=== PATIENT | female | born 1965 | race Caucasian/White ===

== ENCOUNTER 2017-04-26 15:17 | Emergency (ER) | payer BC, OTHER ==
[~2017-04-26] VITALS: Ht 154.9 cm; Wt 50.0 kg
[2017-04-26 17:59] VITALS: BP 129/57
--- NOTE | 2017-04-26 18:00 | ED PDOC ---
Post-Departure Follow-Up CT READ "NAD". DISCUSSED THIS WITH PT AND THE FACT THAT SHE'S STILL SYMPTOMATIC, WE COULD ORDER AN MRI AT THIS TIME. PT HAS ONE PENDING AN OUTPT TO BE CLEARED THROUGH HER INSURANCE, ORDERED BY DR. MCKEON. EXPLAINED THAT THIS COULD TAKE HOURS AND AT THIS TIME, PT STATED SHE WANTED TO GO HOME AND WOULD FOLLOW UP WITH THE OUTPATIENT APPT. ADVISED STILL COULD BE SOMETHING SERIOUS AND PT STILL WANTS TO GO HOME AT THIS TIME. SLOANE KRAFT PA-C Apr 26, 2017 18:00
--- NOTE | 2017-04-26 18:03 | REP ---
CT study of the brain without contrast: History: Left-sided facial numbness. Comparison CT study February 01, 2016. CT findings: Bone window settings demonstrate an intact bony calvarium. There is no evidence of paranasal sinus disease. No intraorbital abnormality is seen. Sandoval white differentiation pattern is normal above below the tentorium. There is no evidence of intracranial hemorrhage. No mass, infarct, extra-axial fluid collection or midline shift is seen. Impression: Negative CT study of the brain. Signed by Obdulio Mclaughlin MD 04/26/2017 07:18 P
== END 2017-04-26 18:01 | disposition home or self-care (01) ==
LOC: M ED 15:17
DX: R20.0 Anesthesia of skin (principal); Z87.820 Personal history of traumatic brain injury; F17.210 Nicotine dependence, cigarettes, uncomplicated

== ENCOUNTER 2017-08-14 12:22 | Emergency (ER) | payer OTHER, BC | END 2017-08-14 14:04 | disposition home or self-care (01) | LOC: M ED 12:22 | DX: S00.03XA Contusion of scalp, initial encounter (principal); W22.8XXA Striking against or struck by other objects, initial encounter; Y92.59 Other trade areas as the place of occurrence of the external cause; Y99.0 Civilian activity done for income or pay | CPT/HCPCS: 99283 ==

== ENCOUNTER 2017-08-26 16:17 | Emergency (ER) | payer SELFPAY, OTHER | END 2017-08-26 18:26 | disposition home or self-care (01) | LOC: M ED 16:17 | DX: R51 Headache (principal); H69.90 Unspecified Eustachian tube disorder, unspecified ear; M50.30 Other cervical disc degeneration, unspecified cervical region; R20.0 Anesthesia of skin; F17.200 Nicotine dependence, unspecified, uncomplicated; Z79.899 Other long term (current) drug therapy; Z79.82 Long term (current) use of aspirin | CPT/HCPCS: 72052 ==

== ENCOUNTER → 2018-02-27 | Outpatient (REF) | payer BC ==
[2018-03-01 14:32] LABS: HPV HYBRID CAPTURE II Negative (Negative)
== END ==
LOC: M LAB REF 17:55
DX: Z12.4 Encounter for screening for malignant neoplasm of cervix (principal)
CPT/HCPCS: G0123

== ENCOUNTER 2019-01-23 14:23 | Emergency (ER) | payer BC, OTHER ==
[~2019-01-23] VITALS: Ht 152.4 cm; Wt 50.9 kg
[~2019-01-23 14:23] MED LIST: ASPI81TA85 PO; CEFD1CAP8 PO; CYCL10TA PO; NORT25CA2 PO; OMEP40CA2 PO; TYLE325T5 PO
[2019-01-23 15:24] LABS: BASO % 0.3 % (0.0-1.0); EOS # 0.2 10^3/uL (0.0-0.50); EOS % 2.1 % (0.0-3.0); HEMATOCRIT 38.1 % (36.0-47.0); HEMOGLOBIN 12.8 g/dl (12.0-15.5); LYMPH # 2.2 10^3/uL (1.5-4.5); LYMPH % 22.5 % (24.0-44.0); MEAN CORPUSCULAR HEMOGLOBIN 33.1 pg (27.0-33.0); MEAN CORPUSCULAR HGB CONC 33.6 g/dl (32.0-36.5); MEAN CORPUSCULAR VOLUME 98.4 fl (80.0-96.0); MONO # 0.6 10^3/uL (0.0-0.8); MONO % 6.4 % (0.0-5.0); NEUTROPHILS # 6.7 10^3/uL (1.8-7.7); NEUTROPHILS % 68.4 % (36.0-66.0); PLATELET COUNT, AUTOMATED 384 10^3/uL (150-450); RED BLOOD COUNT 3.87 10^6/uL (4.00-5.40); WHITE BLOOD COUNT 9.7 10^3/uL (4.0-10.0)
[2019-01-23 15:31] LABS: BLOOD UREA NITROGEN 12 MG/DL (7-18); CALCIUM LEVEL 9.8 MG/DL (8.5-10.1); CARBON DIOXIDE LEVEL 29 MEQ/L (21-32); CHLORIDE LEVEL 108 MEQ/L (98-107); CREATININE FOR GFR 0.82 MG/DL (0.55-1.30); GLOMERULAR FILTRATION RATE > 60.0 (>51); GLUCOSE, FASTING 89 MG/DL (70-100); POTASSIUM SERUM 4.5 MEQ/L (3.5-5.1); SODIUM LEVEL 142 MEQ/L (136-145)
[2019-01-23 17:30] LABS: APPEARANCE, URINE CLEAR (CLEAR); BACTERIA, URINE AUTO NEGATIVE (NEGATIVE); BILIRUBIN, URINE AUTO NEGATIVE (NEGATIVE); BLOOD, URINE BLOOD 1+ (NEGATIVE); COLOR, URINE STRAW (YELLOW); GLUCOSE, URINE (UA) AUTO NEGATIVE (NEGATIVE); KETONE, URINE AUTO TRACE mg/dL (NEGATIVE); LEUKOCYTE ESTERASE, URINE AUTO NEGATIVE (NEGATIVE); NITRITE, URINE AUTO NEGATIVE (NEGATIVE); PROTEIN, URINE AUTO NEGATIVE (NEGATIVE); RBC, URINE AUTO 2 /HPF (0-3); SPECIFIC GRAVITY URINE AUTO 1.006 (1.002-1.035); SQUAMOUS EPITHELIAL CELL UR AU 0 /HPF (0-6); UROBILINOGEN, URINE AUTO 0.2 mg/dL (0.0-2.0); WBC, URINE AUTO 0 /HPF (0-3)
[2019-01-23 17:55] VITALS: BP 129/75
== END 2019-01-23 18:23 | disposition home or self-care (01) ==
LOC: M ED 14:23
DX: K64.5 Perianal venous thrombosis (principal); K21.9 Gastro-esophageal reflux disease without esophagitis; Z97.5 Presence of (intrauterine) contraceptive device; Z79.899 Other long term (current) drug therapy; F17.210 Nicotine dependence, cigarettes, uncomplicated

== ENCOUNTER → 2019-02-05 | Outpatient (REF) | payer OTHER ==
[~2019-02-05] MED LIST changes: +MACR100C43 PO; -OMEP40CA2 PO; +OMEP40CA97 PO
[2019-02-05 22:19] LABS: CHLAMYDIA DNA AMPLIFICATION NEGATIVE (NEGATIVE); GC DNA AMPLIFICATION NEGATIVE (NEGATIVE)
== END ==
LOC: M LAB REF 17:09
PROVIDERS: ATTEND Advanced Practice Midwife
DX: Z11.3 Encounter for screening for infections with a predominantly sexual mode of transmission (principal); R30.0 Dysuria

== ENCOUNTER 2019-02-06 06:51 | Emergency (ER) | payer OTHER ==
[~2019-02-06] VITALS: Ht 152.4 cm; Wt 50.9 kg
[~2019-02-06 06:51] MED LIST changes: -MACR100C43 PO
[2019-02-06 09:43] LABS: BASO % 0.4 % (0.0-1.0); EOS # 0.2 10^3/uL (0.0-0.50); EOS % 1.9 % (0.0-3.0); HEMATOCRIT 42.8 % (36.0-47.0); HEMOGLOBIN 14.7 g/dl (12.0-15.5); LYMPH % 18.6 % (24.0-44.0); MEAN CORPUSCULAR HEMOGLOBIN 34.6 pg (27.0-33.0); MEAN CORPUSCULAR HGB CONC 34.3 g/dl (32.0-36.5); MEAN CORPUSCULAR VOLUME 100.7 fl (80.0-96.0); MONO # 0.7 10^3/uL (0.0-0.8); MONO % 6.7 % (0.0-5.0); NEUTROPHILS # 7.8 10^3/uL (1.8-7.7); NEUTROPHILS % 72.1 % (36.0-66.0); PLATELET COUNT, AUTOMATED 372 10^3/uL (150-450); RED BLOOD COUNT 4.25 10^6/uL (4.00-5.40); WHITE BLOOD COUNT 10.8 10^3/uL (4.0-10.0)
[2019-02-06 10:12] LABS: BLOOD UREA NITROGEN 10 MG/DL (7-18); CALCIUM LEVEL 9.7 MG/DL (8.5-10.1); CARBON DIOXIDE LEVEL 30 MEQ/L (21-32); CHLORIDE LEVEL 107 MEQ/L (98-107); CREATININE FOR GFR 0.89 MG/DL (0.55-1.30); GLOMERULAR FILTRATION RATE > 60.0 (>51); GLUCOSE, FASTING 97 MG/DL (70-100); POTASSIUM SERUM 4.3 MEQ/L (3.5-5.1); SODIUM LEVEL 142 MEQ/L (136-145)
[2019-02-06] MEDS ORDERED: MACR100C43 PO (10:49)
[2019-02-06 10:52] LABS: FOLLICLE STIMULATING HORMONE 77.9 mIU/mL; LUTEINIZING HORMONE 28.5 mIU/mL
[2019-02-06 10:58] VITALS: BP 125/71
--- NOTE | 2019-02-06 12:06 | REP ---
PELVIC ULTRASOUND: Real-time sonographic evaluation of the pelvis performed. Transabdominal and endovaginal technique is utilized. Bladder measures 5.0 x 2.1 x 4.9 cm. Uterus measures 7.4 x 3.2 x 4.0 cm. Endometrial thickness is 6 mm. IUD is seen in the endometrial cavity. There is no endometrial fluid collection. Right ovary measures 2.0 x 0.9 x 1.8 cm and left ovary 1.8 x 0.8 x 1.2 cm. A dominant follicle in the left ovary measures 1 cm in diameter. There is no torsion of either ovary, RI right ovary 0.64 and left ovary 0.52. There appear to be multiple uterine fibroids, on the right 1.5 cm in diameter, on the left 1.9 cm in diameter, and in the midline 1.1 cm in diameter. No adnexal mass or free fluid is seen. IMPRESSION: IUD in the endometrial canal. Fibroid uterus. No torsion. No ovarian cyst. Electronically Signed by Mike Sandoval MD 02/09/2019 11:15 A
== END 2019-02-06 11:03 | disposition home or self-care (01) ==
LOC: M ED 06:51
DX: N83.202 Unspecified ovarian cyst, left side (principal); N39.0 Urinary tract infection, site not specified; D25.9 Leiomyoma of uterus, unspecified; K21.9 Gastro-esophageal reflux disease without esophagitis; Z79.899 Other long term (current) drug therapy; Z97.5 Presence of (intrauterine) contraceptive device; F17.210 Nicotine dependence, cigarettes, uncomplicated

== ENCOUNTER → 2019-08-13 | Outpatient (REF) | payer BC ==
[~2019-08-13] MED LIST changes: +MACR100C43 PO
[2019-08-13 12:03] LABS: BASO % 0.5 % (0.0-1.0); EOS # 0.3 10^3/uL (0.0-0.5); EOS % 4.8 % (0.0-3.0); HEMATOCRIT 42.3 % (36.0-47.0); HEMOGLOBIN 13.8 g/dl (12.0-15.5); LYMPH # 1.9 10^3/uL (1.5-5.0); LYMPH % 30.7 % (24.0-44.0); MEAN CORPUSCULAR HEMOGLOBIN 32.5 pg (27.0-33.0); MEAN CORPUSCULAR HGB CONC 32.6 g/dl (32.0-36.5); MEAN CORPUSCULAR VOLUME 99.5 fl (80.0-96.0); MONO # 0.6 10^3/uL (0.0-0.8); MONO % 9.1 % (0.0-5.0); NEUTROPHILS # 3.4 10^3/uL (1.5-8.5); NEUTROPHILS % 54.7 % (36.0-66.0); PLATELET COUNT, AUTOMATED 362 10^3/uL (150-450); RED BLOOD COUNT 4.25 10^6/uL (4.00-5.40); WHITE BLOOD COUNT 6.2 10^3/uL (4.0-10.0)
[2019-08-13 12:24] LABS: ALBUMIN 3.9 GM/DL (3.2-5.2); ALT/SGPT 26 U/L (12-78); BILIRUBIN,TOTAL 0.4 MG/DL (0.2-1.0); BLOOD UREA NITROGEN 18 MG/DL (7-18); CALCIUM LEVEL 9.4 MG/DL (8.5-10.1); CARBON DIOXIDE LEVEL 29 MEQ/L (21-32); CHLORIDE LEVEL 107 MEQ/L (98-107); CHOLESTEROL LEVEL 191 MG/DL (<200); CREATININE FOR GFR 0.94 MG/DL (0.55-1.30); GLOMERULAR FILTRATION RATE > 60.0 (>51); GLUCOSE, FASTING 99 MG/DL (70-100); HDL CHOLESTEROL 86 MG/DL (>40); LDL CHOLESTEROL 93 MG/DL (<100); NON-HDL-C 105 MG/DL; POTASSIUM SERUM 4.9 MEQ/L (3.5-5.1); SODIUM LEVEL 144 MEQ/L (136-145); TRIGLYCERIDES LEVEL 59 MG/DL (<150)
== END ==
LOC: M LABDRAW1 08:16
PROVIDERS: ATTEND Nurse Practitioner Family
DX: Z00.00 Encounter for general adult medical examination without abnormal findings (principal)

== ENCOUNTER → 2019-09-04 | Outpatient (REF) | payer BC ==
[2019-09-04 14:32] LABS: HEPATITIS B SURFACE ANTIGEN NEGATIVE (NEGATIVE); HEPATITIS C VIRUS ABY INDEX < 0.0 INDEX (<0.8); HIV 1&2 SCREEN CENTAUR NEGATIVE (NEGATIVE)
[2019-09-04 15:25] LABS: CHLAMYDIA DNA AMPLIFICATION NEGATIVE (NEGATIVE); GC DNA AMPLIFICATION NEGATIVE (NEGATIVE)
== END ==
LOC: M PLALAB 10:54
PROVIDERS: ATTEND Advanced Practice Midwife
DX: Z11.3 Encounter for screening for infections with a predominantly sexual mode of transmission (principal)

== ENCOUNTER → 2019-12-28 | Outpatient (CLI) | payer BC ==
[~2019-12-28] MED LIST changes: +CYCL-707 PO; -CYCL10TA PO
--- NOTE | 2019-12-28 14:06 | REP ---
Clinical: Previous trauma with continued pain Technique: AP, lateral, bilateral oblique views right hand . Findings: The osseous structures and joint spaces are intact and normal. There is no evidence for acute fracture or dislocation. Surrounding soft tissues are unremarkable. No subcutaneous emphysema or radiodense foreign body. Impression: No acute fracture or dislocation. Electronically Signed by Lalito Ramos MD 12/28/2019 01:57 P
--- NOTE | 2019-12-28 14:06 | REP ---
Clinical: Previous trauma with continued pain Technique: AP, lateral, bilateral oblique views right wrist . Findings: The carpal bones, surrounding osseous structures, soft tissues, and joint spaces are normal. There is no evidence for acute fracture or dislocation. No subcutaneous emphysema or radiodense foreign body. Impression: Normal wrist series. No acute fracture or dislocation Electronically Signed by Lalito Ramos MD 12/28/2019 01:58 P
== END ==
LOC: M LRY 13:24
PROVIDERS: ATTEND Physician Assistant
DX: M25.531 Pain in right wrist (principal); M79.641 Pain in right hand

== ENCOUNTER → 2020-05-11 | Outpatient (CLI) | payer BC, OTHER ==
[~2020-05-11] MED LIST changes: -ASPI81TA85 PO; +ASPI81TA86 PO; +CLAR10CA3 PO; +MIRE1IUD IU; +PROT20TA11 PO; +WOMETAB PO
== END ==
LOC: M LABSMTC 10:36
PROVIDERS: ATTEND Anesthesiology
DX: Z01.812 Encounter for preprocedural laboratory examination (principal); Z20.828 Contact with and (suspected) exposure to other viral communicable diseases

== ENCOUNTER 2020-05-13 16:14 | Emergency (ER) | payer BC, OTHER ==
[~2020-05-13] VITALS: Ht 154.9 cm; Wt 60.9 kg
[2020-05-13] MEDS ORDERED: NS 1,000 ML IV SCH (17:14)
[2020-05-13] MEDS ORDERED: ONDANSETRON 4MG/2ML VIAL IV ONE (17:15)
[2020-05-13] MEDS ORDERED: GI COCKTAIL 50ML BTL(HYOSCYAMINE/MAALOX/LIDOCAINE VISCOUS)(1:3:1) PO ONE (17:15)
[2020-05-13 17:42] LABS: BASO % 0.3 % (0.0-1.0); EOS # 0.3 10^3/uL (0.0-0.5); EOS % 2.9 % (0.0-3.0); HEMATOCRIT 41.3 % (36.0-47.0); HEMOGLOBIN 13.7 g/dl (12.0-15.5); LYMPH # 2.9 10^3/uL (1.5-5.0); LYMPH % 31.4 % (24.0-44.0); MEAN CORPUSCULAR HEMOGLOBIN 32.5 pg (27.0-33.0); MEAN CORPUSCULAR HGB CONC 33.2 g/dl (32.0-36.5); MEAN CORPUSCULAR VOLUME 97.9 fl (80.0-96.0); MONO # 0.6 10^3/uL (0.0-0.8); MONO % 6.4 % (0.0-5.0); NEUTROPHILS # 5.5 10^3/uL (1.5-8.5); NEUTROPHILS % 58.6 % (36.0-66.0); PLATELET COUNT, AUTOMATED 386 10^3/uL (150-450); RED BLOOD COUNT 4.22 10^6/uL (4.00-5.40); WHITE BLOOD COUNT 9.3 10^3/uL (4.0-10.0)
--- NOTE | 2020-05-13 17:47 | REPVR ---
PROCEDURE INFORMATION: Exam: CT Abdomen And Pelvis Without Contrast Exam date and time: 05/13/2020 5:14 PM Age: 54 years old Clinical indication: Abdominal pain; Additional info: Abd pain TECHNIQUE: Imaging protocol: Computed tomography of the abdomen and pelvis without contrast. Radiation optimization: All CT scans at this facility use at least one of these dose optimization techniques: automated exposure control; mA and/or kV adjustment per patient size (includes targeted exams where dose is matched to clinical indication); or iterative reconstruction. COMPARISON: US PELVIC NON-OB COMPLETE 02/06/2019 9:48 AM FINDINGS: Lungs: Subsegmental atelectasis in the medial segment of the right middle lobe. Thin linear opacity within the lingula. Liver: Normal. No mass. Gallbladder and bile ducts: Normal. No calcified stones. No ductal dilation. Pancreas: Normal. No ductal dilation. Spleen: Normal. No splenomegaly. Adrenal glands: Normal. No mass. Kidneys and ureters: 7 mm low-density lesion lower pole left kidney (16 H) 1.6 mm calcification upper pole left kidney. 1.8 mm calcification upper pole left kidney. 1.7 mm calcification mid right kidney. No hydronephrosis in either kidney. Stomach and bowel: Mild wall thickening suggested of the 1st and 2nd portions of the duodenum. No perienteric inflammation noted. Appendix: No evidence of appendicitis. Intraperitoneal space: Unremarkable. No free air. No significant fluid collection. Vasculature: Unremarkable. No abdominal aortic aneurysm. Lymph nodes: Unremarkable. No enlarged lymph nodes. Urinary bladder: Unremarkable as visualized. Reproductive: Intrauterine device present within the uterus. Bones/joints: Unremarkable. No acute fracture. Soft tissues: Small umbilical hernia fat measuring less than a cm at its base no signs of strangulation. IMPRESSION: 1. Bilateral nonobstructing renal calculi 2. Mild wall thickening of the 1st and 2nd portions of the duodenum. This could be related to relative decompression. Duodenitis is another consideration 3. 7 mm low-density lesion left kidney not fully characterized on this unenhanced examination. There are no suspicious features. This is likely benign in a low risk individual. No follow-up recommended based on this finding. COMMENTS: Consistent with the [employer]'s Incidental Findings Committee white paper (J Am Prakash Radiol 2018): Any incidental renal lesion less than 1 cm or classified as too small to characterize, or any incidental cystic renal lesion characterized as simple-appearing, is likely benign. No follow-up imaging is recommended for these lesions per consensus recommendations based on imaging criteria. Electronically signed by: Evelina Davis On 05/13/2020 17:47:55 PM
[2020-05-13 18:05] LABS: ALT/SGPT 33 U/L (12-78); BILIRUBIN,DIRECT 0.1 MG/DL (0.0-0.2); BILIRUBIN,TOTAL 0.3 MG/DL (0.2-1.0); BLOOD UREA NITROGEN 14 MG/DL (7-18); CALCIUM LEVEL 9.3 MG/DL (8.5-10.1); CARBON DIOXIDE LEVEL 29 MEQ/L (21-32); CHLORIDE LEVEL 108 MEQ/L (98-107); CREATININE FOR GFR 0.84 MG/DL (0.55-1.30); GLOMERULAR FILTRATION RATE > 60.0 (>51); GLUCOSE, FASTING 83 MG/DL (70-100); LIPASE 171 U/L (73-393); POTASSIUM SERUM 4.4 MEQ/L (3.5-5.1); SODIUM LEVEL 141 MEQ/L (136-145); TOTAL PROTEIN 7.1 GM/DL (6.4-8.2)
[2020-05-13 18:44] VITALS: BP 123/70
--- NOTE | 2020-05-16 10:31 | ED PDOC ---
Post-Departure Follow-Up ct abd/p formal report faxed to dr evi nicholson for fu Radha Merritt MD May 16, 2020 10:31
== END 2020-05-13 18:51 | disposition home or self-care (01) ==
LOC: M ED 16:14
DX: K21.9 Gastro-esophageal reflux disease without esophagitis (principal); Z79.899 Other long term (current) drug therapy; Z97.5 Presence of (intrauterine) contraceptive device; F17.210 Nicotine dependence, cigarettes, uncomplicated
CPT/HCPCS: 36415; 74176; 80048; 80076; 81001; 83690; 85025; 96361; 96374; 99284; J2405

== ENCOUNTER 2020-05-16 11:35 | Day surgery (SDC) | payer OTHER ==
[~2020-05-16] VITALS: Ht 154.9 cm; Wt 59.9 kg
[~2020-05-16 11:35] MED LIST changes: +NS 1,000 ML IV ONE
[2020-05-16] MEDS ORDERED: LIDOCAINE 2% 100MG/5ML SDV (FOR ANES.) As Ordered ONE (12:56)
[2020-05-16] MEDS ORDERED: fentaNYL 100 MCG/2 ML INJECTION (J3010) As Ordered ONE (12:56)
[2020-05-16] MEDS ORDERED: propofoL 500 MG/50 ML VIAL As Ordered ONE (12:56)
--- NOTE | 2020-05-16 13:31 | ROOR ---
Patient Name: Telma Muñoz Procedure Date: 05/16/2020 12:48 PM Date of : 1965 Age: 55 Room: [facility] Gender: Female Note Status: Finalized Procedure: Upper GI endoscopy Indications: Epigastric abdominal pain, Heartburn Providers: Anand Valentin MD Referring MD: Josefina Fay MD Requesting Provider: Medicines: Monitored Anesthesia Care Complications: No immediate complications. Procedure: Pre-Anesthesia Assessment: - Prior to the procedure, a History and Physical was performed, and patient medications and allergies were reviewed. The patient is competent. The risks and benefits of the procedure and the sedation options and risks were discussed with the patient. All questions were answered and informed consent was obtained. Patient identification and proposed procedure were verified by the physician, the nurse and the anesthesiologist in the procedure room. Mental Status Examination: alert and oriented. Airway Examination: normal oropharyngeal airway and neck mobility. Respiratory Examination: clear to auscultation. CV Examination: normal. Prophylactic Antibiotics: The patient does not require prophylactic antibiotics. Prior Anticoagulants: The patient has taken no previous anticoagulant or antiplatelet agents. ASA Grade Assessment: II - A patient with mild systemic disease. After reviewing the risks and benefits, the patient was deemed in satisfactory condition to undergo the procedure. The anesthesia plan was to use monitored anesthesia care (MAC). Immediately prior to administration of medications, the patient was re-assessed for adequacy to receive sedatives. The heart rate, respiratory rate, oxygen saturations, blood pressure, adequacy of pulmonary ventilation, and response to care were monitored throughout the procedure. The physical status of the patient was re-assessed after the procedure. The Endoscope was introduced through the mouth, and advanced to the second part of duodenum. The upper GI endoscopy was accomplished without difficulty. The patient tolerated the procedure well. Findings: The examined esophagus was normal. The Z-line was regular and was found 40 cm from the incisors. Scattered mild inflammation characterized by erythema, granularity and linear erosions was found in the gastric antrum. Biopsies were taken with a cold forceps for Helicobacter pylori testing. Verification of patient identification for the specimen was done by the physician and nurse using the patient's name, date and medical record number. Estimated blood loss was minimal. The ampulla, duodenal bulb, second portion of the duodenum and third portion of the duodenum were normal. Biopsies for histology were taken with a cold forceps for evaluation of celiac disease. Impression: - Normal esophagus. - Z-line regular, 40 cm from the incisors. - Gastritis. Biopsied. - Normal ampulla, duodenal bulb, second portion of the duodenum and third portion of the duodenum. Biopsied. Recommendation: - Patient has a contact number available for emergencies. The signs and symptoms of potential delayed complications were discussed with the patient. Return to normal activities tomorrow. Written discharge instructions were provided to the patient. - High fiber diet. - Continue present medications. - Await pathology results. - Follow an antireflux regimen. - Telephone GI clinic for pathology results in 2 weeks. - Return to primary care physician. Anand Valentin MD Anand Valentin MD 05/16/2020 1:30:47 PM Electronically signed by Anand Valentin MD Number of Addenda: 0 Note Initiated On: 05/16/2020 12:48 PM Estimated Blood Loss: Estimated blood loss was minimal.
[2020-05-16 13:40] VITALS: BP 122/57
== END 2020-05-16 13:45 | disposition home or self-care (01) ==
LOC: M OPP 11:35
PROVIDERS: ATTEND Internal Medicine Gastroenterology
DX: K29.70 Gastritis, unspecified, without bleeding (principal); R10.13 Epigastric pain; Z79.3 Long term (current) use of hormonal contraceptives
CPT/HCPCS: 43239; 88305; J3010

== ENCOUNTER → 2020-05-18 | Outpatient (CLI) | payer OTHER ==
[~2020-05-18] MED LIST changes: -NS 1,000 ML IV ONE
--- NOTE | 2020-05-18 14:00 | REP ---
INDICATION: PRECORDIAL PAIN COMPARISON: None. TECHNIQUE: PA and lateral. FINDINGS: The mediastinum and cardiac silhouette are normal. The lung jane are clear and without acute consolidation, effusion, or pneumothorax. The skeletal structures are intact and normal. IMPRESSION: No acute cardiopulmonary process. <Electronically signed by Lalito Ramos > 05/18/20 [id number]
== END ==
LOC: M RAD 12:45
PROVIDERS: ATTEND Internal Medicine Cardiovascular Disease
DX: R07.2 Precordial pain (principal)

== ENCOUNTER 2020-07-26 19:48 | Emergency (ER) | payer OTHER ==
[~2020-07-26] VITALS: Ht 154.9 cm; Wt 60.5 kg
--- OUTSIDE RECORDS SUMMARY | 2020-07-26 21:14 | CCD | Continuity of Care Document ---
Author Author Telma ALVAREZ MD Organization Unknown Address [facility] [id number] Phone [phone] Care Team Providers Care Preparation Supervisor Canning Name Role Phone AdinManuela DICKSON AUTM [phone] Oren Ceballos MD AUTM [phone] Leonard Castellano DO AUTM [phone] Problems Active Problems Provider Date Precordial pain Horacio Alvarez MD Onset: 11/12/2019 Electrocardiogram abnormal Horacio Alvarez MD Onset: 2019 Gastroesophageal reflux disease Horacio Alvarez MD Onset: 0 11/12/2019 Palpitations Horacio Alvarez MD Onset: 11/12/2019 Tobacco user Horacoi Alvarez MD Onset: 11/12/2019 Mitral valve disorder Horacio Alvarez MD Onset: 07/11/2020 Social History Type Date Description Comments Sex Unknown ETOH Use consumes 2-3 beers per day ETOH Use Occasionally consumes liquor A r um and coke` Tobacco Use Start: Unknown Patient is a current smoker, smo kes every day 20+ year smoker, smokes up to 6 a day Smoking Status Reviewed: 11/12/19 Patient is a current smoker, smokes every day 20+ year smoker, smokes up to 6 a day Exercise Type/Frequency Does housework daily [employer] around the house and at the store Exercise Type/Frequency Does yardwork sporadical ly Exercise Type/Frequency Does gardening sporadica lly Exercise Limitations Other chest conge stion and sinus congestion Exercise Limitations Orthopedic Problem Neck Nadia n Exercise Limitations Back Pain Allergies, Adverse Reactions, Alerts Description No Known Drug Allergies Medications Active Medications SIG Qnty Indications Ordering Provide r Date Esomeprazole Magnesium 20mg Capsul es DR 1 tab po twice a day Josefina Fay MD 0 Claritin 10mg Tablets 1 time a day Unknown 11/11/2019 Gummi Bear Multivitamin/Mineral C hewtabs chew one gummie daily Unknown 11/11/2019 Immunizations Description No Information Available Vital Signs Date Vital Result Comment 07/11/2020 1:14pm Weight 130.00 lb Home Weight 126lb home weight Height 61 inches 5'1" BMI (Body Mass Index) 24.6 kg/m2 Heart Rate 78 /min regular Respiratory Rate 16 /min BP Systolic Sitting 100 mmHg Medium cuff, Ra BP Diastolic Sitting 48 mmHg Medium cuff, Ra BP Systolic Lying Down 100 mmHg BP Diastolic Lying Down 48 mmHg 11/12/2019 12:24pm Weight 116.00 lb Height 61 inches 5'1" BMI (Body Mass Index) 21.9 kg/m2 Heart Rate 76 /min regular Respiratory Rate 16 /min BP Systolic Sitting 98 mmHg Medium cuff, Ra; 112 /68 LA BP Diastolic Sitting 60 mmHg Medium cuff, Ra; 11 2/68 LA BP Systolic Lying Down 108 mmHg Ra BP Diastolic Lying Down 62 mmHg Ra O2 % BldC Oximetry 98 % On Room Air O2 Saturation Level with Exercise 98 % On Citlali m Air Results Description No Information Available Procedures Date Code Description Status 06/15/2020 22786 Treadmill/Pharmacological Monito ring Completed Medical Devices Description No Information Available Encounters Type Date Location Provider Dx Diagnosis Office Visit 07/11/2020 12:45p Main Office Horacio Alvarez MD R07.2 Precordial pain R94.31 Abnormal electrocardiogram [ ECG] [EKG] I34.0 Nonrheumatic mitral (valve) insufficiency K21.9 Gastro-esophageal reflux dis ease without esophagitis Assessments Date Code Description Provider 07/11/2020 R07.2 Precordial pain Horacio Alvarez MD 07/11/2020 R94.31 Abnormal electrocardiogram [ECG] [EKG] Horacio Alvarez MD 07/11/2020 I34.0 Nonrheumatic mitral (valve) insu fficiency Horacio Alvarez MD 07/11/2020 K21.9 Gastro-esophageal reflux disease without esophagitis Horaico Alvarez MD 06/15/2020 R07.2 Precordial pain Stress Nuclear/R eg Treadmill 06/15/2020 R94.31 Abnormal electrocardiogram [ECG] [EKG] Stress Nuclear/Reg Treadmill Plan of Treatment 07/11/2020 - Horacio Alvarez MD* R07.2 Precordial pain* Recommendations:* In light of her recent chest x-ray findings and her treadmill stress study, we a re confident her distress is not cardiac but likely chest wall. Her coronary risk is low. Have encouraged the use of regular exercise to prevent further weight gain and to serve as a stress release. * R94.31 Abnormal electrocardiogram [ECG] [EKG]* Recommendations:* No repeat study was performed today, but as previously mentioned, we believe this is related to her pectus excavatum. * I34.0 Nonrheumatic mitral (valve) insufficiency* Recommendations:* Has a very subtle apical systolic murmur likely related to her echocardiographically documented mitral valve prolapse and insufficiency. No special measures would be deemed necessary beyond annual auscultation. A follow-up echocardiogram w ould be suggested in 2 years. * K21.9 Gastro-esophageal reflux disease without esophagitis* Recommendations:* Have encouraged her continued antireflux measures including avoiding eating or drinking for 2-3 hours prior to lying down, and avoiding nicotine, caffeine and alcohol use. Remains on Esomeprazole * All * Comments:* Thank you for allowing me to participate in the care of your patient. Best regards. * Follow up:* Followup appointment with EKG in one year. We would be pleased to reassess the patient at any time. Functional Status Functional Condition Comment Date Status Independent with all ADL's Activ e Mental Status Description No Information Available Referrals Description No Information Available
--- OUTSIDE RECORDS SUMMARY | 2020-07-26 21:14 | CCD ---
Author Author [facility] Organization [facility] Address Unknown Phone Unavailable Care Team Providers Care Night Assistant Name Role Phone Mariah Cleaning Unavailable PROBLEMS Type Condition ICD9-CM Code CLM00-TN Code Onset Dates Condition S tatus SNOMED Code Notes Problem Encounter for insertion of intrauterine contraceptive prem ce V25.11 Active 59951075 Problem Gastroesophageal reflux dise ase, unspecified whether esophagitis present K21.9 Active 684809497 Problem Abnormal uterine bleeding 626.9 Active 497747 [id number] Problem Vulvar furuncle 616.4 Active 45363371 ALLERGIES No Known Allergies ENCOUNTERS from 1965 to 2020-06-02 Encounter Location Date Provider Diagnosis [address] [address] May, Mariah Cleaning IMMUNIZATIONS Vaccine Route Administration Date Status Influenza (18 yrs & older) Flublok IM Intramuscular May 31, 2020 Administered SOCIAL HISTORY Tobacco Use: Social History Observation Description Date Details (start date - stop date) Current Smoker Sex Assigned At : Social History Observation Description Sex Assigned At Unknown Audit Question Answer Notes Total Score: 15 Interpretation: Simple Advice Drug and Alcohol Question Answer Notes Total Score: 0 Interpretation: No problems reported Tobacco Use: Question Answer Notes Are you a: current smoker Additional Findings: Tobacco User Moderate cigarette smoker (10-19 cigs/day) How many cigarettes a day do you smoke? 6-10 Are you interested in quitting? Ready to quit REASON FOR REFERRAL No Information VITAL SIGNS No information MEDICATIONS Medication SIG (Take, Route, Frequency, Duration) Notes Start Da te End Date Status Prilosec OTC 20 MG 1 tablet 30 minutes before m orning meal Orally Once a day for 90 days Active Aspirin 81 81 MG 1 tablet Orally Once a day for 30 day(s) Active Claritin 10 MG 1 tablet Orally Once a day for 30 day(s) Active Multivitamin Active Mirena 20 MCG/24HR as directed Intrauterine Dec, Not-Taking Esomeprazole Magnesium 20 MG 1 capsule Orally Daily Not-Taking PROCEDURES No Information RESULTS No Results REASON FOR VISIT PA Omeprazole 20mg DR capsules MEDICAL (GENERAL) HISTORY Type Description Date Medical History back pain-due to bulging discs Medical History HPV Medical History GERD Surgical History vulva cyst,benign 06/08 Surgical History colposcopy 03/11/2015 Surgical History carpal tunnel release Goals Section No Information Health Concerns No Information MEDICAL EQUIPMENT No Information MENTAL STATUS No Information FUNCTIONAL STATUS No Information ASSESSMENTS No Information PLAN OF TREATMENT Medication Medication Name Sig Start Date Stop Date Prilosec OTC 20 MG 1 tablet 30 minutes before m orning meal Orally Once a day for 90 days Insurance Providers Payer Name Payer Address Payer Phone Insured Name Patient Relati onship to Insured Coverage Start Date Coverage End Date [employer] (NON MEDICAID MANAGED CARE) CORPORATE CLAIMS DEPT [address] [facility] [phone] [id number]
--- OUTSIDE RECORDS SUMMARY | 2020-07-26 21:14 | CCD | Continuity of Care Document ---
Author Telma Franz M.D. Organization Unknown Address [address] [place] [address] Phone [phone] Care Team Providers Care Surgical Elastic Knitter Name Role Phone Horacio Alvarez MD [facility] [phone] [facility] [phone] Problems Description No Information Available Social History Type Date Description Comments Sex Unknown Tobacco Use Start: Unknown Never Used Smokeless Tobacco ETOH Use Consumes 2-3 beers per day Tobacco Use Start: Unknown Patient is a current smoker, smo kes every day 1/2 pack a day, smoked for over 25 years Recreational Drug Use Never Used Drugs Smoking Status Reviewed: 09/04/19 Patient is a current smoker, smokes every day 1/2 pack a day, smoked for over 25 years Exercise Type/Frequency Does not exercise Tattoo/Piercing Pierced ears Sun Exposure Does not use sunscreen Seat Belt/Car Seat Always uses seat belt Bike Helmet Never Smoke Alarms Yes Smoke Alarms Carbon Monoxide Detector: No Allergies, Adverse Reactions, Alerts Description No Known Drug Allergies Medications Active Medications SIG Qnty Indications Ordering Provide r Date Esomeprazole Magnesium 20mg Capsul es DR Take 1 Capsule By Mouth Twice Daily 60caps Asad Oakley FNP 12/31/2019 Bupropion Hydrochloride ER (SR) 150mg Tablets ER 12HR one tablet daily for 3 days then one tablet bid 60tabs F17.210 Manuela Oakley FNP 07/22/2019 Immunizations CPT Code Status Date Vaccine Lot # [id number] Given 07/22/2019 Boostrix (Tdap) Tetnus, Diphtheria Toxoids & Acellular Pertussis [id number] Vital Signs Date Vital Result Comment 09/04/2019 12:15pm BP Systolic 100 mmHg BP Diastolic 67 mmHg Heart Rate 83 /min Body Temperature 98.5 F Respiratory Rate 16 /min Height 62 inches 5'2" Weight 113.00 lb O2 % BldC Oximetry 95 % Peak Expiratory Flow Rate 338 Estimated Peak Flow Rate [place] Body Weight 110 lb BMI (Body Mass Index) 20.7 kg/m2 07/22/2019 4:21pm BP Systolic 119 mmHg BP Diastolic 62 mmHg Heart Rate 77 /min Body Temperature 97.3 F Respiratory Rate 16 /min Height 62 inches 5'2" Weight 114.38 lb O2 % BldC Oximetry 99 % Peak Expiratory Flow Rate 338 Estimated Peak Flow Rate Last Menstrual Period 1632990 has Mirena IUD [place] Body Weight 110 lb BMI (Body Mass Index) 20.9 kg/m2 Results Test Acquired Date Facility Test Result H/L Range Note CBC With Differential 05/13/2020 [place] [address] [phone] White Blood Count 9.3 10 Normal 4.0-10.0 Red Blood Count 4.22 10 Normal 4.00-5.40 Hemoglobin 13.7 g/dL Normal 12.0-15.5 Hematocrit 41.3 % Normal 36.0-47.0 Mean Corpuscular Volume 97.9 fl High 80.0-96.0 Mean Corpuscular Hemoglobin 32.5 pg Normal 27.0-33.0 Mean Corpuscular HGB Conc 33.2 g/dL Normal 32.0-36.5 Red Cell Distribution Width 12.9 % Normal 11.5-14.5 Platelet Count, Automated 386 10 Normal 150-450 Neutrophils % 58.6 % Normal 36.0-66.0 Lymph % 31.4 % Normal 24.0-44.0 [place] % 6.4 % High 0.0-5.0 Eos % 2.9 % Normal 0.0-3.0 Baso % 0.3 % Normal 0.0-1.0 Immature Granulocyte % 0.4 % Normal 0-3.0 Nucleated Red Blood Cell % 0.0 % Normal 0-0 Neutrophils # 5.5 10 Normal 1.5-8.5 Lymph # 2.9 10 Normal 1.5-5.0 [place] # 0.6 10 Normal 0.0-0.8 Eos # 0.3 10 Normal 0.0-0.5 Baso # 0.0 10 Normal 0.0-0.2 Liver Profile 05/13/2020 [place] [address] [phone] Ast/Sgot 14 U/L Normal 7-37 Alt/SGPT 33 U/L Normal 12-78 Alkaline Phosphatase 67 U/L Normal 45-117 Bilirubin,Total 0.3 mg/dL Normal 0.2-1.0 Bilirubin,Direct 0.1 mg/dL Normal 0.0-0.2 Total Protein 7.1 GM/DL Normal 6.4-8.2 Albumin 4.0 GM/DL Normal 3.2-5.2 Albumin/Globulin Ratio 1.3 Normal 1.2-2.2 Basic Metabolic Profile 05/13/2020 [place] [address] [phone] Glucose, Fasting 83 mg/dL Normal 70-100 Blood Urea Nitrogen 14 mg/dL Normal 7-18 Creatinine For GFR 0.84 mg/dL Normal 0.55-1.30 Glomerular Filtration Rate > 60.0 Normal >51 1 Sodium Level 141 mEq/L Normal 136-145 Potassium Serum 4.4 mEq/L Normal 3.5-5.1 Chloride Level 108 mEq/L High 98-107 Carbon Dioxide Level 29 mEq/L Normal 21-32 Anion Gap 4 mEq/L Low 8-16 Calcium Level 9.3 mg/dL Normal 8.5-10.1 Laboratory test finding 05/13/2020 [place] [address] [phone] Lipase 171 U/L Normal 73-393 Ua W/ Reflex To Culture 05/13/2020 [place] [address] [phone] Appearance, Urine RFX CLEAR Normal Clear Color, Urine RFX STRAW Normal Yellow PH,Urine RFX 7.0 units Normal 5.0-9.0 Specific [place] Ur Auto RFX 1.009 Normal 1.002-1.035 Protein, Urine Auto RFX NEGATIVE mg/dL Normal Negative Glucose, Urine (Ua) Auto RFX NEGATIVE mg/dL Normal Negative Ketone, Urine Auto RFX NEGATIVE mg/dL Normal Negative Urobilinogen, Urine Auto RFX 0.2 mg/dL Normal 0.0-2.0 Bilirubin, Urine Auto RFX NEGATIVE Normal Negative Nitrite, Urine Auto RFX NEGATIVE Normal Negative Leukocyte Esterase Ur Auto RFX NEGATIVE Normal Negative Blood, Urine Blood RFX 1+ High Negative WBC, Urine Auto RFX 1 /HPF Normal 0-3 RBC, Urine Auto RFX 3 /HPF Normal 0-3 Bacteria, Urine Auto RFX NEGATIVE Normal Negative Squam Epithelial Cell Ur Aurfx 1 /HPF Normal 0-6 Hyaline Cast, Urine Auto RFX 0 /LPF Normal 0-1 1 Units are mL/min/1.73 m2 Chronic Kidney Disease Staging per NKF: Stage I & II GFR >=60 Normal to Mildly Decreased Stage III GFR 30-59 Moderately Decreased Stage IV GFR 15-29 Severely Decreased Stage V GFR <15 Very Little GFR Left ESRD GFR <15 on [place] Procedures Date Code Description Status 03/31/2019 39072211 Colonoscopy Completed Medical Devices Description No Information Available Encounters Type Date Location Provider Dx Diagnosis Office Visit 11/27/2019 12:30p Main Office Manuela Oakley FNP K21.9 Gastro- esophageal reflux disease without esophagitis Assessments Date Code Description Provider 11/27/2019 K21.9 Gastro-esophageal reflux disease without esophagitis Manuela Oakley FNP Plan of Treatment 11/27/2019 - Manuela Oakley FNP* K21.9 Gastro-esophageal reflux disease without esophagitis* Comments:* continue nexium, refer for endoscopy Functional Status Functional Condition Comment Date Status Bifocal glasses Active Independent with all ADL's Activ e Independent with all IADL's Acti ve Mental Status Mental Condition Comment Date Status None Active Referrals Refer to Reason for Referral Status Appt Date [facility], needs endoscopy Closed 01/13/20 20 [address] [place] [address] [phone]
--- OUTSIDE RECORDS SUMMARY | 2020-07-26 21:14 | CCD ---
Author Author [facility] Organization [facility] Address Unknown Phone Unavailable Care Team Providers Care Communications Operator Name Role Phone Mariah Cleaning Unavailable PROBLEMS Type Condition ICD9-CM Code GUR52-GP Code Onset Dates Condition S tatus SNOMED Code Notes Problem Encounter for insertion of intrauterine contraceptive prem ce V25.11 Active 19737796 Problem Gastroesophageal reflux dise ase, unspecified whether esophagitis present K21.9 Active 182330034 Problem Abnormal uterine bleeding 626.9 Active 358884 [id number] Problem Vulvar furuncle 616.4 Active 99297039 ALLERGIES No Known Allergies ENCOUNTERS from 1965 to 2020-06-02 Encounter Location Date Provider Diagnosis [facility] [address] [place] [address] May, Mariah Cleaning Encounter for medical examination to [facility] Z00.00 ; Gastroesophageal reflux disease, unspecified whether esophagitis present K21.9 and Encounter for immunization Z23 IMMUNIZATIONS Vaccine Route Administration Date Status Influenza [...] REASON FOR REFERRAL No Information VITAL SIGNS Weight 134 lbs May, Height 60.75 in May, BMI 25.53 kg/m2 May, Heart Rate 91 /min May, Respiratory Rate 18 /min May, Temperature 98.7 degrees Fahrenheit May, Oximetry 98 May, Blood pressure systolic 108 mm Hg May, Blood pressure diastolic 59 mm Hg May, MEDICATIONS Medication SIG (Take, Route, Frequency, Duration) [...] MG 1 capsule Orally Daily Not-Taking PROCEDURES Procedure Date Ordered Result Body Site Immunization: Flublok Quadrivalent (18 years & older) 0.5mL IM (Influenza) 2020-05-31 N/A RESULTS No Results REASON FOR VISIT ESTABLISH CARE, GERD MEDICAL (GENERAL) HISTORY Type Description Date Medical History back pain-due to bulging discs Medical History HPV Medical History GERD Surgical History vulva cyst,benign 06/08 Surgical History colposcopy 03/11/2015 Surgical History carpal tunnel release Goals Section No Information Health Concerns No Information MEDICAL EQUIPMENT No Information MENTAL STATUS No Information FUNCTIONAL STATUS No Information ASSESSMENTS Encounter Date Diagnosis Assessment Notes Treatment Notes Treatm ent Clinical Notes May, Encounter for medical examin ation to establish care (ICD-10 - Z00.00) Patient was instructed to sign medical release form to obtain records from previous PCP, GI, and cardiology. May, Gastroesophageal reflux dise ase, unspecified whether esophagitis present (ICD-10 - K21.9) Advised patient to avoid spicy foods and caffeine as much as possible. Avoid large meals at least 2 hours before bedtime. Importance of smoking cessation was discussed to help releive GERD sx as well. Patient is seeing GI for GERD work up. Recently had upper endoscopy done on 05/16/2020. Results pending. Patient stopped taking pantoprazole and is now taking Prilosec which she likes better. Prilosec refill was provided at this visit. May, Encounter for immunization (ICD-10 - Z23) Patient Educated with: FLU Vaccine, Inactivated [id number] (FLU Vaccine, Inactivated [id number]) PLAN OF TREATMENT Medication Medication Name Sig Start Date Stop Date Prilosec OTC 20 MG 1 tablet 30 minutes before m orning meal Orally Once a day for 90 days Treatment Notes Assessment Notes Clinical Notes Encounter for medical examination to establish care Patient was instructed to sign medical release form to obtain records from previous PCP, GI, and cardiology. Gastroesophageal reflux disease, unspecified whether esophag itis present Advised patient to avoid spicy foods and caffeine as much as possible. Avoid large meals at least 2 hours before bedtime. Importance of smoking cessation was discussed to help releive GERD sx as well. Patient is seeing GI for GERD work up. Recently had upper endoscopy done on 05/16/2020. Results pending.Patient stopped taking pantoprazole and is now taking Prilosec which she likes better. Prilosec refill was provided at this visit. Encounter for immunization Patient Educated with: FLU Vaccine, Inactivated [id number] (FLU Vaccine, Inactivated [id number]) Next Appt Details prn Reason: Insurance Providers Payer Name Payer Address Payer Phone Insured Name Patient Relati onship to Insured Coverage Start Date Coverage End Date [facility]NA[facility] C[facility]) CORPORATE CLAIMS DEPT [address] [facility] [id number] COBY ZUNIGA
--- OUTSIDE RECORDS SUMMARY | 2020-07-26 21:14 | CCD | Continuity of Care Document ---
Author Telma Franz M.D. Organization Unknown Address [address] [place] [address] Phone [phone] Care Team Providers Care Plug Wirer Name Role Phone Horacio Alvarez MD [facility] [phone] [facility] Problems Description No Information Available Social History [...] CPT Code Status Date Vaccine Lot # [id number] Given 07/22/2019 Boostrix (Tdap) Tetnus, Diphtheria Toxoids & Acellular Pertussis [id number] Vital Signs Date Vital Result Comment 09/04/2019 12:15pm BP Systolic 100 mmHg BP Diastolic 67 mmHg Heart Rate 83 /min Body Temperature 98.5 F Respiratory Rate 16 /min Height 62 inches 5'2" Weight 113.00 lb O2 % BldC Oximetry 95 % Peak Expiratory Flow Rate 338 Estimated Peak Flow Rate [place] Body Weight 110 lb BMI (Body Mass Index) 20.7 kg/m2 07/22/2019 4:21pm BP Systolic 119 mmHg BP Diastolic 62 mmHg Heart Rate 77 /min Body Temperature 97.3 F Respiratory Rate 16 /min Height 62 inches 5'2" Weight 114.38 lb O2 % BldC Oximetry 99 % Peak Expiratory Flow Rate 338 Estimated Peak Flow Rate Last Menstrual Period [id number] has Mirena IUD [place] Body Weight 110 lb BMI (Body Mass Index) 20.9 kg/m2 Results Test Acquired Date Facility Test Result H/L Range Note CBC With Differential 05/13/2020 [place] [address] [phone] White Blood Count 9.3 10 Normal 4.0-10.0 [...] 36.0-66.0 Lymph % 31.4 % Normal 24.0-44.0 [place] % 6.4 % High 0.0-5.0 Eos % 2.9 % Normal 0.0-3.0 Baso % 0.3 % Normal 0.0-1.0 Immature Granulocyte % 0.4 % Normal 0-3.0 Nucleated Red Blood Cell % 0.0 % Normal 0-0 Neutrophils # 5.5 10 Normal 1.5-8.5 Lymph # 2.9 10 Normal 1.5-5.0 [place] # 0.6 10 Normal 0.0-0.8 Eos # 0.3 10 Normal 0.0-0.5 Baso # 0.0 10 Normal 0.0-0.2 Liver Profile 05/13/2020 [place] [address] [phone] Ast/Sgot 14 U/L Normal 7-37 Alt/SGPT 33 U/L Normal 12-78 Alkaline Phosphatase 67 U/L Normal 45-117 Bilirubin,Total 0.3 mg/dL Normal 0.2-1.0 Bilirubin,Direct 0.1 mg/dL Normal 0.0-0.2 Total Protein 7.1 GM/DL Normal 6.4-8.2 Albumin 4.0 GM/DL Normal 3.2-5.2 Albumin/Globulin Ratio 1.3 Normal 1.2-2.2 Basic Metabolic Profile 05/13/2020 [place] [address] [phone] Glucose, Fasting 83 mg/dL Normal 70-100 Blood [...] 8.5-10.1 Laboratory test finding 05/13/2020 [place] [address] [phone] Lipase 171 U/L Normal 73-393 Ua W/ Reflex To Culture 05/13/2020 [place] [address] [phone] Appearance, Urine RFX CLEAR Normal Clear Color, Urine RFX STRAW Normal Yellow PH,Urine RFX 7.0 units Normal 5.0-9.0 Specific [place] Ur Auto RFX 1.009 Normal 1.002-1.035 Protein, [...] Little GFR Left ESRD GFR <15 on [place] Procedures Date Code Description Status 03/31/2019 [id number] Colonoscopy Completed Medical Devices Description No Information [...] to Reason for Referral Status Appt Date [facility], needs endoscopy Closed 01/13/20 20 [address] [place] [address] [phone]
--- OUTSIDE RECORDS SUMMARY | 2020-07-26 21:16 | CCD ---
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 [facility] ([facility] ID Date Data Source [id number] 08/13/2019 08:20:00 AM EST [facility] ([facility] Name Value Range Interpretation Code Description Data Heather rce(s) Supporting Document(s) Glucose, Fasting 99 mg/dL 70-100 [facility] ([facility] Blood Urea Nitrogen 18 mg/dL 7-18 [facility] ([facility] Glomerular Filtration Rate Laboratory test result [facility] ([facility] <content>Units are mL/min/1.73 m2</content>
<content></content>
<content>Chronic Kidney Disease Staging per NKF:</content>
<content></content>
<content>Stage I & II GFR >=60 Normal to Mildly Decreased</content>
<content>Stage III GFR 30- 59 Moderately Decreased</content>
<content>Stage IV GFR 15-29 Severely Decreased</content>
<content>Stage V GFR <15 Very Little GFR Left</content>
<content>ESRD GFR <15 on OWNER CONSULTING ENGINEER</content>
<content></content> Creatinine For GFR 0.94 mg/dL 0.55-1.30 [facility] ([facility] Sodium Level 144 meq/L 136-145 [facility] ([facility] Carbon Dioxide Level 29 meq/L 21-32 [facility] ([facility] Potassium Serum 4.9 meq/L 3.5-5.1 [facility] ([facility] Chloride Level 107 meq/L 98-107 [facility] ([facility] Anion Gap 8 meq/L 8-16 [facility] ([facility] Calcium Level 9.4 mg/dL 8.5-10.1 [facility] ([facility] Ast/Sgot 14 U/L 7-37 [facility] ([facility] Alkaline Phosphatase 59 U/L 45-117 [facility] ([facility] Bilirubin,Total 0.4 mg/dL 0.2-1.0 [facility] ([facility] Alt/SGPT 26 U/L 12-78 [facility] ([facility] Total Protein 7.0 GM/DL 6.4-8.2 [facility] ([facility] Albumin 3.9 GM/DL 3.2-5.2 [facility] ([facility] Albumin/Globulin Ratio 1.26 1.00-1.93 MA DENT ([facility] ID Date Data Source [id number] 08/13/2019 08:20:00 AM EST [facility] ([facility] Name Value Range Interpretation Code Description Data Heather rce(s) Supporting Document(s) White Blood Count 6.2 10 4.0-10.0 [facility] ([facility] Hematocrit 42.3 % 36.0-47.0 [facility] ([facility] Red Blood Count 4.25 10 4.00-5.40 [facility] ([facility] Hemoglobin 13.8 g/dL 12.0-15.5 [facility] ([facility] Mean Corpuscular Volume 99.5 fl 80.0-96.0 M EDENT ([facility] Mean Corpuscular Hemoglobin 32.5 pg 27.0-33.0 [facility] ([facility] Mean Corpuscular HGB Conc 32.6 g/dL 32.0-36.5 [facility] ([facility] Red Cell Distribution Width 13.2 % 11.5-14.5 [facility] ([facility] Neutrophils % 54.7 % 36.0-66.0 [facility] ([facility] Platelet Count, Automated 362 10 150-450 [facility] ([facility] Eos % 4.8 % 0.0-3.0 [facility] ([facility] Lymph % 30.7 % 24.0-44.0 [facility] ([facility] Graves % 9.1 % 0.0-5.0 [facility] ([facility] Baso % 0.5 % 0.0-1.0 [facility] ([facility] Nucleated Red Blood Cell % 0.0 % 0-0 MED ENT ([facility] Immature Granulocyte % 0.2 % 0-3.0 [facility] ([facility] Neutrophils # 3.4 10 1.5-8.5 [facility] ([facility] Graves # 0.6 10 0.0-0.8 [facility] ([facility] Lymph # 1.9 10 1.5-5.0 [facility] ([facility] Eos # 0.3 10 0.0-0.5 [facility] ([facility] Baso # 0.0 10 0.0-0.2 [facility] ([facility] ID Date Data Source [id number] 08/13/2019 08:20:00 AM EST [facility] ([facility]) Name Value Range Interpretation Code Description Data Heather rce(s) Supporting Document(s) Thyrotropin [Units/volume] in Serum or Plasma 1.150 uIU/ML 0.358-3.74 0 MED[facility] ([facility]) Calcitriol [Mass/volume] in Serum or Plasma 19.4 pg/mL 19.9-79.3 [facility] ([facility]) Performed at: [address] [id number] Hair Mixer: Cherise Thapa MD, Phone: [phone] ID Date Data Source [id number] 08/13/2019 08:20:00 AM EST [facility] ([facility]) Name Value Range Interpretation Code Description Data Heather rce(s) Supporting Document(s) Triglycerides Level 59 mg/dL [facility] ([facility] Cholesterol in LDL [Mass/volume] in Serum or Plasma by calculation 93 mg/dL [facility] ([facility]) Cholesterol Level 191 mg/dL [facility] ([facility]) HDL Cholesterol 86 mg/dL [facility] ([facility]) Non-HDL-C 105 mg/dL [facility] Cholesterol Risk Ratio 2.220 [facility] ([facility]) ID Date Data Source [id number] 08/13/2019 08:20:00 AM EST [facility] ([facility]) Name Value Range Interpretation Code Description Data Heather rce(s) Supporting Document(s) Glucose, Fasting 99 mg/dL 70-100 [facility] Blood Urea Nitrogen 18 mg/dL 7-18 [facility] ([facility] Creatinine For GFR 0.94 mg/dL 0.55-1.30 [facility] ([facility]) Sodium Level 144 meq/L 136-145 [facility] ([facility]) Glomerular Filtration Rate Laboratory test result MED[facility] ([facility]) <content>Units are mL/min/1.73 m2</content>
<content></content>
<content>Chronic Kidney Disease Staging per NKF:</content>
<content></content>
<content>Stage I & II GFR >=60 Normal to Mildly Decreased</content>
<content>Stage III GFR 30- 59 Moderately Decreased</content>
<content>Stage IV GFR 15-29 Severely Decreased</content>
<content>Stage V GFR <15 Very Little GFR Left</content>
<content>ESRD GFR <15 on OWNER CONSULTING ENGINEER</content>
<content></content>
<content></content> Potassium Serum 4.9 meq/L 3.5-5.1 [facility] ([facility]) Chloride Level 107 meq/L 98-107 [facility] ([facility]) Carbon Dioxide Level 29 meq/L 21-32 [facility] ([facility]) Anion gap in Serum or Plasma 8 meq/L 8-16 [facility] ([facility]) Calcium Level 9.4 mg/dL 8.5-10.1 [facility] ([facility]) Aspartate aminotransferase [Enzymatic activity/volume] in Serum or Plasma 14 U/L 7-37 [facility] ([facility]) Alkaline phosphatase [Enzymatic activity/volume] in Serum or Plasma 59 U/L 45-117 [facility] ([facility]) Alanine aminotransferase [Enzymatic activity/volume] in Seru m or Plasma 26 U/L 12-78 [facility] ([facility]) Bilirubin,Total 0.4 mg/dL 0.2-1.0 [facility] ([facility]) Albumin 3.9 GM/DL 3.2-5.2 [facility] ([facility] Total Protein 7.0 GM/DL 6.4-8.2 [facility] ([facility]) Albumin/Globulin Ratio 1.26 1.00-1.93 MA DENT ([facility]) ID Date Data Source [id number] 08/13/2019 08:20:00 AM EST [facility] ([facility]) Name Value Range Interpretation Code Description Data Heather rce(s) Supporting Document(s) White Blood Count 6.2 10 4.0-10.0 [facility] Hemoglobin 13.8 g/dL 12.0-15.5 [facility] ([facility]) Red Blood Count 4.25 10 4.00-5.40 [facility] Hematocrit 42.3 % 36.0-47.0 [facility] ([facility]) Mean Corpuscular Volume 99.5 fl 80.0-96.0 M EDENT ([facility]) Mean Corpuscular Hemoglobin 32.5 pg 27.0-33.0 [facility] ([facility]) Red Cell Distribution Width 13.2 % 11.5-14.5 [facility] ([facility]) Mean Corpuscular HGB Conc 32.6 g/dL 32.0-36.5 [facility] ([facility]) Lymphocytes/100 leukocytes in Blood by Automated count 30.7 % 24. 0-44.0 [facility] ([facility]) Neutrophils % 54.7 % 36.0-66.0 [facility] ([facility] Platelet Count, Automated 362 10 150-450 [facility] ([facility]) Graves % 9.1 % 0.0-5.0 [facility] Eos % 4.8 % 0.0-3.0 [facility] Immature Granulocyte % 0.2 % 0-3.0 [facility] ([facility]) Nucleated Red Blood Cell % 0.0 % 0-0 MED ENT ([facility]) Baso % 0.5 % 0.0-1.0 [facility] Lymph # 1.9 10 1.5-5.0 [facility] Neutrophils # 3.4 10 1.5-8.5 [facility] ([facility] Baso # 0.0 10 0.0-0.2 [facility] Graves # 0.6 10 0.0-0.8 [facility] Eos # 0.3 10 0.0-0.5 [facility] ([facility] ID Date Data Source [id number] 08/13/2019 12:00:00 AM EST [facility] Patient Name: KITTY [id number] Date of : 1965[place] [address] Date of Exam: 08/13/2019#: Fax: [phone] EXAM: US ABDOMEN, LIMITED SINGLE ORGAN,QUADRANTCLINICAL INFORMATION: Epigastric pain.Realtime sonographic evaluation of the right upper quadrant is performed.The gallbladder demonstrates no evidence of intraluminal sludge or calculi,wall thickening or pericholecystic fluid. There is no intrahepatic orextrahepatic biliary dilatation, common bile duct measuring 3 mm. Liverand pancreas demonstrate homogeneous echo texture with no gross mass. Theright kidney demonstrates no hydronephrosis with normal size 10.6 cm inlength, resistive index 0.55 with duplex Doppler evaluation. Visualizedabdominal aorta and inferior vena cava are unremarkable.IMPRESSION:Negative right upper quadrant ultrasound.Accredited by the [employer] in General Ultrasound.ROXIE Swift/Brenda you for referring COBY ZUNIGA to our office. Electronically Signed - KATELYN DANIELS MD 08/13/19 12:58 Name Value Range Interpretation Code Description Data Heather rce(s) Supporting Document(s) Procedure Social History Code Duration Value Status Description Data Source(s ) Smoking 05/31/2020 12:00:00 AM EST Current Smoker completed Curre nt Smoker eCW1 ([facility]) Smoking 05/31/2020 12:00:00 AM EST Current Smoker completed Curre nt Smoker eCW1 ([facility]) Vital Signs ID Date Data Source UNK Name Value Range Interpretation Code Description Data Source(s) Diastolic blood pressure--supine 48 mm[Hg] 48 mm[Hg] [facility] ([facility]) Systolic blood pressure--supine 100 mm[Hg] 100 mm[Hg] [facility] ([facility]) Diastolic blood pressure--sitting 48 mm[Hg] 48 mm[Hg] [facility] ([facility]) Medium cuff, Ra Systolic blood pressure--sitting 100 mm[Hg] 100 mm[Hg] [facility] ([facility]) Medium cuff, Ra Respiratory rate 16 /min 16 /min [facility] ( [facility]) Heart rate 78 /min 78 /min [facility] ([facility] regular Body mass index (BMI) [Ratio] 24.6 kg/m2 24.6 k g/m2 [facility] ([facility]) Body height 61 [in_i] 61 [in_i] [facility] ([facility]) 5'1" Body weight 130.00 [lb_av] 130.00 [lb_av] MEDEN T ([facility]) Diastolic blood pressure 59 mm[Hg] 59 mm[Hg] eCW1 ([facility]) Systolic blood pressure 108 mm[Hg] 108 mm[Hg] e CW1 ([facility]) Body temperature 98.7 [degF] 98.7 [degF] eCW1 ( [facility]) Respiratory rate 18 /min 18 /min eCW1 ([facility]) Heart rate 91 /min 91 /min eCW1 ([facility]) Body mass index (BMI) [Ratio] 25.53 kg/m2 25.53 kg/m2 eCW1 ([facility]) Body height 60.75 [in_i] 60.75 [in_i] eCW1 ([facility]) Body weight 134 [lb_av] 134 [lb_av] eCW1 ([facility]) Body weight 58.061 kg 58.061 kg [facility] Body mass index (BMI) [Ratio] 24.2 kg/m2 24.2 k g/m2 [facility] ([facility]) Body weight 128.00 [lb_av] 128.00 [lb_av] MEDEN T ([facility]) Body height 61 [in_i] 61 [in_i] [facility] 5'1" Diastolic blood pressure 64 mm[Hg] 64 mm[Hg] [facility] ([facility]) Systolic blood pressure 98 mm[Hg] 98 mm[Hg] EDENT ([facility]) Oxygen saturation in Arterial blood by Pulse oximetry --post exerci se 98 % 98 % [facility] ([facility]) On Room Air Oxygen saturation in Arterial blood by Pulse oximetry 98 % 98 % [facility] ([facility] On Room Air Diastolic blood pressure--supine 62 mm[Hg] 62 mm[Hg] [facility] ([facility]) Ra Systolic blood pressure--supine 108 mm[Hg] 108 mm[Hg] [facility] ([facility]) Ra Diastolic blood pressure--sitting 60 mm[Hg] 60 mm[Hg] [facility] ([facility]) Medium cuff, Ra; 112/68 LA Systolic blood pressure--sitting 98 mm[Hg] 98 mm[Hg] [facility] ([facility]) Medium cuff, Ra; 112/68 LA Respiratory rate 16 /min 16 /min [facility] ( [facility]) Heart rate 76 /min 76 /min [facility] ([facility]) regular Body mass index (BMI) [Ratio] 21.9 kg/m2 21.9 k g/m2 [facility] ([facility]) Body height 61 [in_i] 61 [in_i] [facility] ([facility]) 5'1" Body weight 116.00 [lb_av] 116.00 [lb_av] MEDEN T ([facility]) Body mass index (BMI) [Ratio] 20.7 kg/m2 20.7 k g/m2 [facility] ([facility] [place] body weight 110 [lb_av] 110 [lb_av] MEDEN T ([facility] Oxygen saturation in Arterial blood by Pulse oximetry 95 % 95 % [facility] ([facility] Body weight 113.00 [lb_av] 113.00 [lb_av] MEDEN T ([facility] Body height 62 [in_i] 62 [in_i] [facility] ([facility] 5'2" Respiratory rate 16 /min 16 /min [facility] ( [facility] Body temperature 98.5 [degF] 98.5 [degF] [facility] ([facility] Heart rate 83 /min 83 /min [facility] ([facility] Diastolic blood pressure 67 mm[Hg] 67 mm[Hg] [facility] ([facility] Systolic blood pressure 100 mm[Hg] 100 mm[Hg] M EDENT ([facility] Diastolic blood pressure 78 mm[Hg] 78 mm[Hg] eCW1 ([facility]) Systolic blood pressure 110 mm[Hg] 110 mm[Hg] e CW1 ([facility]) Body mass index (BMI) [Ratio] 21.72 kg/m2 21.72 kg/m2 eCW1 ([facility]) Body height 60.75 [in_us] 60.75 [in_us] eCW1 ([facility]) Body weight Measured 114 [lb_av] 114 [lb_av] eC W1 ([facility]) Body mass index (BMI) [Ratio] 20.9 kg/m2 20.9 k g/m2 [facility] ([facility] [place] body weight 110 [lb_av] 110 [lb_av] MEDEN T ([facility] Oxygen saturation in Arterial blood by Pulse oximetry 99 % 99 % [facility] ([facility] Body weight 114.38 [lb_av] 114.38 [lb_av] MEDEN T ([facility] Body height 62 [in_i] 62 [in_i] [facility] ([facility] 5'2" Respiratory rate 16 /min 16 /min [facility] ( [facility] Body temperature 97.3 [degF] 97.3 [degF] [facility] ([facility] Heart rate 77 /min 77 /min [facility] ([facility] Diastolic blood pressure 62 mm[Hg] 62 mm[Hg] [facility] ([facility] Systolic blood pressure 119 mm[Hg] 119 mm[Hg] M EDENT ([facility]
[2020-07-26] MEDS ORDERED: ACETAMINOPHEN 325 MG TAB PO ONE (21:45)
--- NOTE | 2020-07-26 21:53 | REPVR ---
PROCEDURE INFORMATION: Exam: CT Head Without Contrast Exam date and time: 07/26/2020 9:10 PM Age: 55 years old Clinical indication: Injury or trauma; Fall; Blunt trauma (contusions or hematomas); Additional info: Fall hit post occipital on ice, headache since TECHNIQUE: Imaging protocol: Computed tomography of the head without contrast. Radiation optimization: All CT scans at this facility use at least one of these dose optimization techniques: automated exposure control; mA and/or kV adjustment per patient size (includes targeted exams where dose is matched to clinical indication); or iterative reconstruction. COMPARISON: CT Head without contrast 04/26/2017 4:58 PM FINDINGS: Brain: The roach-white differentiation appears preserved. There is no evidence of mass effect. Cerebral ventricles: Normal ventricles. Bones/joints: Unremarkable. No acute fracture. Paranasal sinuses: Clear paranasal sinuses. Mastoid air cells: Visualized mastoid air cells are well aerated. Soft tissues: Unremarkable. IMPRESSION: 1. No evidence of fracture. 2. No evidence of bleed. Electronically signed by: Tato Osborne On 07/26/2020 21:53:31 PM
[2020-07-26 22:15] VITALS: BP 138/88
== END 2020-07-26 22:17 | disposition home or self-care (01) ==
LOC: M ED 19:48
DX: R51.9 Headache, unspecified (principal); F17.200 Nicotine dependence, unspecified, uncomplicated; Z86.73 Personal history of transient ischemic attack (TIA), and cerebral infarction without residual deficits

== ENCOUNTER → 2020-07-29 | Outpatient (CLI) | payer OTHER ==
[2020-07-29 16:26] LABS: FREE T4 0.88 NG/DL (0.76-1.46); THYROID STIMULATING HORMONE 1.33 uIU/ML (0.358-3.740)
== END ==
LOC: M WUC 11:06
PROVIDERS: ATTEND Student in an Organized Health Care Education/Training Program
DX: R00.2 Palpitations (principal)

== ENCOUNTER 2020-09-01 20:41 | Emergency (ER) | payer OTHER ==
[~2020-09-01] VITALS: Ht 165.1 cm; Wt 58.2 kg
[2020-09-01] MEDS ORDERED: CYCL-707 (20:59)
[2020-09-01] MEDS ORDERED: BUSP10TA (20:59)
[2020-09-01] MEDS ORDERED: OMEP-218 (20:59)
[2020-09-01 22:40] VITALS: BP 129/77
--- NOTE | 2020-09-02 08:18 | ECGEPIP ---
[facility] - ED Test Date: 2020-09-01 Pat Name: COBY ZUNIGA Department: Room: - Gender: Female [employer]: : 1965 Requested By: Taylor Mcleod Order Number: [id number] Reading MD: Taylor Mcleod Measurements Intervals [place] Rate: 85 P: 51 PA: 182 QRS: 35 QRSD: 78 T: 55 QT: 382 QTc: 454 Interpretive Statements Normal sinus rhythm No prior Electronically Signed on 09-02-2020 8:18:15 EST by Taylor Mcleod
== END 2020-09-01 22:42 | disposition home or self-care (01) ==
LOC: M ED 20:41
DX: F41.9 Anxiety disorder, unspecified (principal); K21.9 Gastro-esophageal reflux disease without esophagitis; M51.36 Other intervertebral disc degeneration, lumbar region; Z87.891 Personal history of nicotine dependence; Z79.899 Other long term (current) drug therapy

== ENCOUNTER 2020-12-27 11:37 | Emergency (ER) | payer OTHER ==
[~2020-12-27] VITALS: Ht 154.9 cm; Wt 60.1 kg
[~2020-12-27 11:37] MED LIST changes: +BUSP10TA; +CYCL-707; +OMEP-218; +OMEP40CA4 PO; -OMEP40CA97 PO
[2020-12-27 11:38] VITALS: BP 140/64
--- NOTE | 2020-12-27 12:20 | REP ---
INDICATION: swollen tender area Top scalp, no LOC COMPARISON: 02/01/2016, 04/26/2017 07/26/2020 TECHNIQUE: Axial noncontrast images from the skull base to the vertex with coronal reformations. This CT examination was performed using the following dose reduction techniques: Automated exposure control, adjustment of mA and/or kv according to the patient's size, and use of iterative reconstruction technique. FINDINGS: The ventricles, sulci, and cisterns are normal in position and appearance. Sandoval-white differentiation is maintained. No acute intracranial hemorrhage, mass/mass effect, pathology or trauma/injury. No evidence for acute infarction. No extra-axial fluid collection. Calvarium is intact. Paranasal sinuses and mastoid air cells are clear. IMPRESSION: Normal noncontrast head CT. No evidence for acute intracranial pathology or trauma/injury. <Electronically signed by Lalito Ramos > 12/27/20 [id number]
--- NOTE | 2020-12-27 12:21 | REP ---
INDICATION: swollen tender area Top scalp, no LOC, cervical pain COMPARISON: None. TECHNIQUE: Axial noncontrast images from the skull base to the thoracic inlet with coronal and sagittal re-formations This CT examination was performed using the following dose reduction techniques: Automated exposure control, adjustment of mA and/or kv according to the patient's size, and use of iterative reconstruction technique. FINDINGS: Straightening of normal lordosis is nonspecific and likely chronic. Advanced multilevel degenerative spondylosis includes endplate sclerosis, disc space narrowing, osteophytosis and facet hypertrophy. No acute fracture/compression injury or subluxation. Spinal canal is patent. Posterior elements and spinous processes are intact. Paravertebral soft tissues are within normal limits. IMPRESSION: Chronic straightening of normal lordosis and advanced multilevel degenerative spondylosis. No evidence for acute fracture/compression injury or subluxation. <Electronically signed by Lalito Ramos > 12/27/20 [id number]
== END 2020-12-27 12:35 | disposition home or self-care (01) ==
LOC: M ED 11:37
DX: S09.90XA Unspecified injury of head, initial encounter (principal); X58.XXXA Exposure to other specified factors, initial encounter; Y92.009 Unspecified place in unspecified non-institutional (private) residence as the place of occurrence of the external cause; Y93.89 Activity, other specified; Y99.8 Other external cause status; Z79.3 Long term (current) use of hormonal contraceptives; Z79.899 Other long term (current) drug therapy; Z98.890 Other specified postprocedural states

== ENCOUNTER 2020-12-29 09:12 | Emergency (ER) | payer OTHER ==
[~2020-12-29] VITALS: Ht 154.9 cm; Wt 59.8 kg
[2020-12-29] MEDS ORDERED: PANT20TA6 PO (09:23)
[2020-12-29] MEDS ORDERED: KETOROLAC 60MG 2ML VIAL IM ONE (10:45)
[2020-12-29] MEDS ORDERED: METOCLOPRAMIDE 10 MG TAB PO ONE (10:45)
--- NOTE | 2020-12-29 10:58 | REP ---
INDICATION: increased DESAI, tingling, hit head 3 days ago. COMPARISON: Comparison head CT study 27 December 2020.. TECHNIQUE: Helical scanning is acquired. 5 mm axial images were reformatted. Coronal MPR images were generated. FINDINGS: Bone window settings demonstrate an intact bony calvarium. There is no evidence of skull fracture or incidental bony calvarial lesion. The visualized paranasal sinuses appear clear. No intraorbital abnormality is seen. On soft tissue window setting images; the lateral, third, and fourth ventricles are normal in size and position. Sandoval-white differentiation pattern is normal above and below the tentorium. There are is no evidence of intracranial hemorrhage. No mass, edema, infarction, or midline shift is seen. No extra-axial fluid collection is appreciated. No change from recent comparison study. IMPRESSION: Negative noncontrast head CT. <Electronically signed by Shant Mclaughlin > 12/29/20 1056
[2020-12-29 12:05] VITALS: BP 108/75
== END 2020-12-29 12:09 | disposition home or self-care (01) ==
LOC: M ED 09:12
DX: G44.309 Post-traumatic headache, unspecified, not intractable (principal); Z79.899 Other long term (current) drug therapy; Z86.73 Personal history of transient ischemic attack (TIA), and cerebral infarction without residual deficits; Z97.5 Presence of (intrauterine) contraceptive device
CPT/HCPCS: 70450; 96372; 99283; J1885

== ENCOUNTER → 2021-02-16 | Outpatient (CLI) | payer OTHER ==
[~2021-02-16] MED LIST changes: +PANT20TA6 PO
[2021-02-16 11:41] LABS: BASO % 0.3 % (0.0-1.0); EOS # 0.2 10^3/uL (0.0-0.5); EOS % 1.8 % (0.0-3.0); HEMATOCRIT 43.5 % (36.0-47.0); LYMPH # 2.1 10^3/uL (1.5-5.0); LYMPH % 17.5 % (24.0-44.0); MEAN CORPUSCULAR HEMOGLOBIN 31.8 pg (27.0-33.0); MEAN CORPUSCULAR HGB CONC 32.2 g/dl (32.0-36.5); MEAN CORPUSCULAR VOLUME 98.9 fl (80.0-96.0); MONO # 0.7 10^3/uL (0.0-0.8); MONO % 5.8 % (2.0-8.0); NEUTROPHILS # 8.9 10^3/uL (1.5-8.5); NEUTROPHILS % 74.1 % (36.0-66.0); PLATELET COUNT, AUTOMATED 420 10^3/uL (150-450); WHITE BLOOD COUNT 12.1 10^3/uL (4.0-10.0)
[2021-02-16 11:42] LABS: BLOOD UREA NITROGEN 14 MG/DL (7-18); CALCIUM LEVEL 9.1 MG/DL (8.5-10.1); CARBON DIOXIDE LEVEL 30 MEQ/L (21-32); CHLORIDE LEVEL 108 MEQ/L (98-107); CHOLESTEROL LEVEL 187 MG/DL (<200); CHOLESTEROL RISK RATIO 2.397 (<5); CREATININE FOR GFR 0.83 MG/DL (0.55-1.30); GLOMERULAR FILTRATION RATE > 60.0 (>51); GLUCOSE, FASTING 74 MG/DL (70-100); HDL CHOLESTEROL 78 MG/DL (>40); LDL CHOLESTEROL 101 MG/DL (<100); NON-HDL-C 109 MG/DL; POTASSIUM SERUM 4.8 MEQ/L (3.5-5.1); SODIUM LEVEL 140 MEQ/L (136-145); TRIGLYCERIDES LEVEL 39 MG/DL (<150)
== END ==
LOC: M WUC 09:12
PROVIDERS: ATTEND Student in an Organized Health Care Education/Training Program
DX: Z00.00 Encounter for general adult medical examination without abnormal findings (principal)

== ENCOUNTER → 2021-03-30 | Outpatient (REF) | payer OTHER | LOC: M SFHCLERA 15:13 | PROVIDERS: ATTEND Student in an Organized Health Care Education/Training Program | DX: J02.9 Acute pharyngitis, unspecified (principal) ==

== ENCOUNTER → 2021-04-14 | Outpatient (REF) | payer OTHER | LOC: M SFHCWAGY 12:50 | PROVIDERS: ATTEND Advanced Practice Midwife | DX: Z12.4 Encounter for screening for malignant neoplasm of cervix (principal); R30.0 Dysuria ==

== ENCOUNTER → 2021-05-08 | Outpatient (CLI) | payer OTHER ==
[~2021-05-08] MED LIST changes: +E-Z-GAS II EFFERVESCENT PACKET (SODIUM BICARB./CITRIC ACID/SIMETHICONE) As Ordered ONE; +E-Z-HD 98% w/w 340GM SUSP BTL As Ordered ONE; +E-Z-PAQUE 96% w/w SUSP 176GM BTL As Ordered ONE
--- NOTE | 2021-05-08 17:23 | REP ---
INDICATION: PERSISTENT DYSPHAGIA. COMPARISON: None. TECHNIQUE: This procedure was performed under the direct supervision of Dr. Sandoval. Images were reviewed with Dr. Sandoval. Liquid barium and gas producing granules were given in the erect position as well as liquid barium in the prone oblique positions in order to perform a double contrast esophagram examination. A combination of fluoroscopy, spot films and last image hold technology was utilized. 0.6 minutes of fluoro time was utilized for this procedure. FINDINGS: A single view PA chest x-ray is submitted as a yoga instructor film. The superior mediastinal structures are midline. The heart size is within normal limits. The lungs are clear. The oral and pharyngeal stages of deglutition are unremarkable. Esophageal transport is prompt and efficient and there is no esophagitis, stricture, mucosal ring, or hiatal hernia.Gastroesophageal reflux is not demonstrated on this examination IMPRESSION: Essentially unremarkable double-contrast esophagram examination. <Electronically signed by Bin Whaley > 05/08/21 1608 <Electronically signed by Mike Sandoval > 05/08/21 [id number]
== END ==
LOC: M RAD 08:07
PROVIDERS: ATTEND Otolaryngology
DX: F45.8 Other somatoform disorders (principal)

== ENCOUNTER → 2021-05-16 | Outpatient (REF) | payer OTHER ==
[~2021-05-16] MED LIST changes: -E-Z-GAS II EFFERVESCENT PACKET (SODIUM BICARB./CITRIC ACID/SIMETHICONE) As Ordered ONE; -E-Z-HD 98% w/w 340GM SUSP BTL As Ordered ONE; -E-Z-PAQUE 96% w/w SUSP 176GM BTL As Ordered ONE
== END ==
LOC: M LAB REF 10:07
PROVIDERS: ATTEND Physician Assistant Medical
DX: R19.4 Change in bowel habit (principal)

== ENCOUNTER → 2021-06-27 | Outpatient (REF) | payer OTHER | LOC: M LAB REF 16:08 | PROVIDERS: ATTEND Physician Assistant Medical | DX: J02.9 Acute pharyngitis, unspecified (principal) ==

== ENCOUNTER → 2021-07-26 | Outpatient (REF) | payer OTHER ==
[~2021-07-26] MED LIST changes: -CEFD1CAP8 PO; +CEFD300C41 PO; +OMEP-173; -OMEP-218
[2021-07-26 10:25] LABS: CLOSTRIDIUM DIFFICILE PCR NEGATIVE (NEGATIVE)
== END ==
LOC: M LAB REF 08:54
PROVIDERS: ATTEND Physician Assistant Medical
DX: A04.72 Enterocolitis due to Clostridium difficile, not specified as recurrent (principal)

== ENCOUNTER → 2021-07-28 | Outpatient (CLI) | payer OTHER ==
[~2021-07-28] MED LIST changes: +ISOVUE-370 76% 100ML VIAL ONE
== END ==
LOC: M PLAIMG 11:00
PROVIDERS: ATTEND Otolaryngology
DX: R22.1 Localized swelling, mass and lump, neck (principal); R07.0 Pain in throat
CPT/HCPCS: 70491; Q9967

== ENCOUNTER → 2021-09-08 | Outpatient (CLI) | payer OTHER ==
[~2021-09-08] MED LIST changes: +BUSP15TA47 PO; +FLUO40CA PO; -ISOVUE-370 76% 100ML VIAL ONE; +PANT40TA29 PO
== END ==
LOC: M LABSMTC 09:49
PROVIDERS: ATTEND Anesthesiology
DX: Z01.812 Encounter for preprocedural laboratory examination (principal); Z20.822 Contact with and (suspected) exposure to COVID-19

== ENCOUNTER 2021-09-12 11:40 | Day surgery (SDC) | payer OTHER ==
[~2021-09-12] VITALS: Ht 154.9 cm; Wt 61.2 kg
[~2021-09-12 11:40] MED LIST changes: +LIDOCAINE 2% 100MG/5ML SDV (FOR ANES.) As Ordered ONE; +NS 1,000 ML IV ONE; +propofoL 500 MG/50 ML VIAL As Ordered ONE
[2021-09-12] MEDS ORDERED: fentaNYL 100 MCG/2 ML INJECTION As Ordered ONE (13:22)
[2021-09-12 14:15] VITALS: BP 120/78
== END 2021-09-12 14:30 | disposition home or self-care (01) ==
LOC: M OPP 11:40
PROVIDERS: ATTEND Internal Medicine Gastroenterology
DX: K64.8 Other hemorrhoids (principal); K52.9 Noninfective gastroenteritis and colitis, unspecified; K29.70 Gastritis, unspecified, without bleeding; R10.13 Epigastric pain; Z79.899 Other long term (current) drug therapy; F17.210 Nicotine dependence, cigarettes, uncomplicated
CPT/HCPCS: 43239; 45380; 88305; J3010

== ENCOUNTER → 2021-09-20 | Outpatient (REF) | payer OTHER ==
[~2021-09-20] MED LIST changes: -LIDOCAINE 2% 100MG/5ML SDV (FOR ANES.) As Ordered ONE; -NS 1,000 ML IV ONE; -propofoL 500 MG/50 ML VIAL As Ordered ONE
== END ==
LOC: M PLALAB 15:29
PROVIDERS: ATTEND Specialist
DX: D06.9 Carcinoma in situ of cervix, unspecified (principal); N95.0 Postmenopausal bleeding

== ENCOUNTER → 2021-10-10 | Outpatient (REF) | LOC: M LAB 12:15 | PROVIDERS: ATTEND Nurse Practitioner Adult Health | DX: Z02.89 Encounter for other administrative examinations (principal) ==

== ENCOUNTER → 2022-02-12 | Outpatient (CLI) | payer OTHER ==
[2022-02-12 17:47] LABS: APPEARANCE, URINE MANUAL CLEAR (CLEAR); COLOR, URINE MANUAL LT YELLOW (YELLOW)
[2022-02-12 17:49] LABS: BILIRUBIN, URINE MANUAL NEGATIVE (NEGATIVE); GLUCOSE, URINE (UA) MANUAL NEGATIVE (NEGATIVE); KETONE, URINE MANUAL NEGATIVE (NEGATIVE); LEUKOCYTE ESTERASE, URINE MAN POSITIVE (NEGATIVE); NITRITE, URINE MANUAL NEGATIVE (NEGATIVE); PROTEIN, URINE MANUAL NEGATIVE (NEGATIVE); SPECIFIC GRAVITY,URINE MANUAL 1.015 (1.002-1.035); UROBILINOGEN, URINE MANUAL NORMAL (NORMAL)
[2022-02-12 17:50] LABS: BLOOD URINE MANUAL TRACE (NEGATIVE)
[2022-02-12 17:58] LABS: BACTERIA, URINE SMALL AMOUNT; HYALINE CAST, URINE NONE SEEN /lpf (0-1); RBC, URINE 0-1 /hpf (0-3)
[2022-02-12 17:59] LABS: SQUAMOUS EPITHELIAL CELL URINE MOD AMOUNT /hpf (SMALL AMT)
== END ==
LOC: M LAB 16:16
PROVIDERS: ATTEND Student in an Organized Health Care Education/Training Program
DX: R93.89 Abnormal findings on diagnostic imaging of other specified body structures (principal); R30.0 Dysuria; M54.2 Cervicalgia; M54.50 Low back pain, unspecified

== ENCOUNTER → 2022-04-30 | Outpatient (REF) | payer OTHER | LOC: M SFHCWAGY 18:01 | PROVIDERS: ATTEND Advanced Practice Midwife | DX: Z12.4 Encounter for screening for malignant neoplasm of cervix (principal); R87.612 Low grade squamous intraepithelial lesion on cytologic smear of cervix (LGSIL); R87.810 Cervical high risk human papillomavirus (HPV) DNA test positive ==

== ENCOUNTER → 2022-05-11 | Outpatient (CLI) | payer OTHER ==
[2022-05-11 12:40] LABS: BASO % 0.2 % (0.0-1.0); EOS # 0.3 10^3/uL (0.0-0.5); EOS % 2.2 % (0.0-3.0); HEMATOCRIT 41.8 % (36.0-47.0); HEMOGLOBIN 13.6 g/dl (12.0-15.5); LYMPH # 2.6 10^3/uL (1.5-5.0); LYMPH % 22.8 % (24.0-44.0); MEAN CORPUSCULAR HGB CONC 32.5 g/dl (32.0-36.5); MEAN CORPUSCULAR VOLUME 98.4 fl (80.0-96.0); MONO # 0.6 10^3/uL (0.0-0.8); MONO % 5.3 % (2.0-8.0); NEUTROPHILS # 7.9 10^3/uL (1.5-8.5); NEUTROPHILS % 69.2 % (36.0-66.0); PLATELET COUNT, AUTOMATED 402 10^3/uL (150-450); RED BLOOD COUNT 4.25 10^6/uL (4.00-5.40); WHITE BLOOD COUNT 11.4 10^3/uL (4.0-10.0)
[2022-05-11 13:42] LABS: ALBUMIN 3.9 GM/DL (3.2-5.2); ALT/SGPT 26 U/L (12-78); BILIRUBIN,TOTAL 0.4 MG/DL (0.2-1.0); BLOOD UREA NITROGEN 14 MG/DL (7-18); CALCIUM LEVEL 9.2 MG/DL (8.5-10.1); CARBON DIOXIDE LEVEL 26 MEQ/L (21-32); CHLORIDE LEVEL 107 MEQ/L (98-107); CHOLESTEROL LEVEL 208 MG/DL (<200); CHOLESTEROL RISK RATIO 2.363 (<5); CREATININE FOR GFR 0.82 MG/DL (0.55-1.30); GLOMERULAR FILTRATION RATE > 60.0 (>51); GLUCOSE, FASTING 119 MG/DL (70-100); HDL CHOLESTEROL 88 MG/DL (>40); LDL CHOLESTEROL 110 MG/DL (<100); NON-HDL-C 120 MG/DL; POTASSIUM SERUM 4.5 MEQ/L (3.5-5.1); SODIUM LEVEL 139 MEQ/L (136-145); TOTAL PROTEIN 7.1 GM/DL (6.4-8.2); TRIGLYCERIDES LEVEL 52 MG/DL (<150)
== END ==
LOC: M WUC 09:26
PROVIDERS: ATTEND Student in an Organized Health Care Education/Training Program
DX: I10 Essential (primary) hypertension (principal)

== ENCOUNTER → 2022-08-02 | Outpatient (CLI) | payer OTHER | LOC: M PLARAD 08:32 | PROVIDERS: ATTEND Orthopaedic Surgery | DX: M47.22 Other spondylosis with radiculopathy, cervical region (principal); M50.31 Other cervical disc degeneration, high cervical region; M50.321 Other cervical disc degeneration at C4-C5 level; M50.322 Other cervical disc degeneration at C5-C6 level; M48.02 Spinal stenosis, cervical region; M99.61 Osseous and subluxation stenosis of intervertebral foramina of cervical region ==

== ENCOUNTER → 2022-09-19 | Outpatient (CLI) | payer OTHER ==
[2022-09-19 12:08] LABS: CPK CREATINE PHOSPHOKINASE 129 U/L (34-145)
[2022-09-19 12:09] LABS: RHEUMATOID FACTOR QUANT < 3.5 IU/ML (<14); THYROID STIMULATING HORMONE 1.738 uIU/ML (0.55-4.78); TOTAL 25(OH) VITAMIN D 26.2 NG/ML (20.0-100.0)
[2022-09-19 12:10] LABS: VITAMIN B12 LEVEL 564 PG/ML (211-911)
== END ==
LOC: M LAB 08:57
PROVIDERS: ATTEND Psychiatry & Neurology Neurology
DX: R53.1 Weakness (principal); R51.9 Headache, unspecified

== ENCOUNTER → 2022-10-08 | Outpatient (CLI) | payer OTHER | LOC: M RAD 16:56 | PROVIDERS: ATTEND Student in an Organized Health Care Education/Training Program | DX: Z12.2 Encounter for screening for malignant neoplasm of respiratory organs (principal); F17.210 Nicotine dependence, cigarettes, uncomplicated ==

== ENCOUNTER → 2023-04-15 | Outpatient (REF) | payer OTHER ==
[~2023-04-15] MED LIST changes: -CEFD300C41 PO; +CEFD300C42 PO
== END ==
LOC: M LAB REF 12:05
PROVIDERS: ATTEND Physician Assistant Medical
DX: J02.9 Acute pharyngitis, unspecified (principal)

== ENCOUNTER → 2023-04-26 | Outpatient (REF) | payer OTHER | LOC: M LAB REF 14:28 | PROVIDERS: ATTEND Nurse Practitioner Family | DX: R19.4 Change in bowel habit (principal) ==

== ENCOUNTER → 2023-06-05 | Outpatient (CLI) | payer OTHER ==
[~2023-06-05] MED LIST changes: +CEFD1CAP9 PO; -CEFD300C42 PO
== END ==
LOC: M WHC 12:53
PROVIDERS: ATTEND Physician Assistant
DX: Z12.31 Encounter for screening mammogram for malignant neoplasm of breast (principal)

== ENCOUNTER → 2023-06-19 | Outpatient (CLI) | payer OTHER | LOC: M CARPUL 13:51 | PROVIDERS: ATTEND Physician Assistant | DX: R06.02 Shortness of breath (principal) ==

== ENCOUNTER → 2023-07-30 | Outpatient (REF) | payer OTHER | LOC: M SFHCLERA 16:13 → M LABWUC 16:13 | PROVIDERS: ATTEND Physician Assistant | DX: S80.861D Insect bite (nonvenomous), right lower leg, subsequent encounter (principal); W57.XXXD Bitten or stung by nonvenomous insect and other nonvenomous arthropods, subsequent encounter ==

== ENCOUNTER 2023-09-24 16:18 | Emergency (ER) | payer OTHER ==
[~2023-09-24] VITALS: Ht 180.3 cm; Wt 63.2 kg
[2023-09-24 20:35] VITALS: BP 120/73; TEMP 97.7; O2SAT 100
== END 2023-09-24 20:36 | disposition home or self-care (01) ==
LOC: M ED 16:18
DX: S00.03XA Contusion of scalp, initial encounter (principal); W22.8XXA Striking against or struck by other objects, initial encounter; G56.00 Carpal tunnel syndrome, unspecified upper limb; K21.9 Gastro-esophageal reflux disease without esophagitis; F17.200 Nicotine dependence, unspecified, uncomplicated; Y92.9 Unspecified place or not applicable; Y93.89 Activity, other specified; Y99.9 Unspecified external cause status; Z79.1 Long term (current) use of non-steroidal anti-inflammatories (NSAID); Z79.2 Long term (current) use of antibiotics; Z79.899 Other long term (current) drug therapy; Z79.891 Long term (current) use of opiate analgesic

== ENCOUNTER → 2023-11-05 | Outpatient (CLI) | payer OTHER | LOC: M RAD 09:53 | PROVIDERS: ATTEND Physician Assistant | DX: F17.210 Nicotine dependence, cigarettes, uncomplicated (principal) ==

== ENCOUNTER → 2023-11-13 | Outpatient (CLI) | payer OTHER ==
[2023-11-13 11:42] LABS: HEMATOCRIT 40.5 % (36.0-47.0); HEMOGLOBIN 13.7 g/dl (12.0-15.5); MEAN CORPUSCULAR HEMOGLOBIN 32.4 pg (27.0-33.0); MEAN CORPUSCULAR HGB CONC 33.8 g/dl (32.0-36.5); MEAN CORPUSCULAR VOLUME 95.7 fl (80.0-96.0); PLATELET COUNT, AUTOMATED 382 10^3/uL (150-450); RED BLOOD COUNT 4.23 10^6/uL (4.00-5.40); WHITE BLOOD COUNT 7.6 10^3/uL (4.0-10.0)
[2023-11-13 12:10] LABS: ALT/SGPT 27 U/L (7.0-40); AST/SGOT 22 U/L (<34); BLOOD UREA NITROGEN 14 MG/DL (9-23); CALCIUM LEVEL 8.9 MG/DL (8.5-10.1); CARBON DIOXIDE LEVEL 27 MMOL/L (20-31); CHLORIDE LEVEL 107 MMOL/L (98-107); CHOLESTEROL LEVEL 207 MG/DL (<200); CHOLESTEROL RISK RATIO 3.15 (<5); CPK CREATINE PHOSPHOKINASE 83 U/L (34-145); CREATININE FOR GFR 0.88 MG/DL (0.55-1.30); GLOMERULAR FILTRATION RATE > 60.0 (>51); GLUCOSE, FASTING 88 MG/DL (60-100); HDL CHOLESTEROL 65.6 MG/DL (>40); LDL CHOLESTEROL 132.2 MG/DL (<100); NON-HDL-C 141.4 MG/DL; POTASSIUM SERUM 4.5 MMOL/L (3.5-5.1); SODIUM LEVEL 141 MMOL/L (136-145); TRIGLYCERIDES LEVEL 46 MG/DL (<150)
[2023-11-13 12:12] LABS: THYROID STIMULATING HORMONE 1.803 uIU/ML (0.55-4.78); THYROXINE (T4) 8.1 UG/DL (4.5-10.9)
== END ==
LOC: M WUC 08:53
PROVIDERS: ATTEND Physician Assistant
DX: Z13.220 Encounter for screening for lipoid disorders (principal); R00.2 Palpitations

== ENCOUNTER 2024-03-19 12:14 | Day surgery (SDC) | payer OTHER ==
[~2024-03-19] VITALS: Ht 154.9 cm; Wt 62.1 kg
[~2024-03-19 12:14] MED LIST changes: +AMIT25TA19 PO; +BUSP1TAB PO; +FLUO-365 PO; +NS 1,000 ML IV ONE; +OMEP-173 PO; +ROSU5TAB40 PO
[2024-03-19] MEDS ORDERED: fentaNYL 100 MCG/2 ML INJECTION As Ordered ONE (13:38)
[2024-03-19] MEDS ORDERED: propofoL 200 MG/20 ML VIAL As Ordered ONE (13:39)
[2024-03-19] MEDS ORDERED: LIDOCAINE 2% 100MG/5ML SDV (FOR ANES.) As Ordered ONE (13:40)
[2024-03-19 13:53] VITALS: TEMP 97.9
[2024-03-19 14:06] VITALS: BP 109/64; O2SAT 96
== END 2024-03-19 14:14 | disposition home or self-care (01) ==
LOC: M OPP 12:14
PROVIDERS: ATTEND Internal Medicine Gastroenterology
DX: R13.10 Dysphagia, unspecified (principal); Q39.4 Esophageal web; R12 Heartburn; F17.210 Nicotine dependence, cigarettes, uncomplicated; F10.10 Alcohol abuse, uncomplicated; E78.5 Hyperlipidemia, unspecified; F41.9 Anxiety disorder, unspecified; Z79.899 Other long term (current) drug therapy
CPT/HCPCS: 43239; 43450; 88305; J3010

== ENCOUNTER → 2024-04-23 | Outpatient (CLI) | payer OTHER ==
[~2024-04-23] MED LIST changes: +METHACHOLINE KIT (6 VIAL.NEB PREMIX) INH ONE; -NS 1,000 ML IV ONE
== END ==
LOC: M CARPUL 10:34
PROVIDERS: ATTEND Internal Medicine Pulmonary Disease
DX: R06.02 Shortness of breath (principal)
CPT/HCPCS: 94070; 95070; J7674

== ENCOUNTER → 2024-04-28 | Outpatient (CLI) | payer OTHER ==
[~2024-04-28] MED LIST changes: -METHACHOLINE KIT (6 VIAL.NEB PREMIX) INH ONE
[2024-04-28 15:46] LABS: CHOLESTEROL RISK RATIO 2.37 (<5); HDL CHOLESTEROL 75.4 MG/DL (>40); LDL CHOLESTEROL 93.6 MG/DL (<100); NON-HDL-C 103.6 MG/DL
== END ==
LOC: M PLALAB 13:53
PROVIDERS: ATTEND Internal Medicine Cardiovascular Disease
DX: E78.2 Mixed hyperlipidemia (principal)

== ENCOUNTER → 2024-04-28 | Outpatient (CLI) | payer OTHER ==
[2024-04-28 15:28] LABS: BASO % 0.3 % (0.0-1.0); EOS # 0.2 10^3/uL (0.0-0.5); EOS % 1.7 % (0.0-3.0); HEMATOCRIT 40.7 % (36.0-47.0); HEMOGLOBIN 13.8 g/dl (12.0-15.5); LYMPH # 3.2 10^3/uL (1.5-5.0); LYMPH % 32.8 % (24.0-44.0); MEAN CORPUSCULAR HEMOGLOBIN 31.7 pg (27.0-33.0); MEAN CORPUSCULAR HGB CONC 33.9 g/dl (32.0-36.5); MEAN CORPUSCULAR VOLUME 93.6 fl (80.0-96.0); MONO # 0.6 10^3/uL (0.0-0.8); MONO % 6.2 % (2.0-8.0); NEUTROPHILS # 5.7 10^3/uL (1.5-8.5); NEUTROPHILS % 58.7 % (36.0-66.0); PLATELET COUNT, AUTOMATED 378 10^3/uL (150-450); RED BLOOD COUNT 4.35 10^6/uL (4.00-5.40); WHITE BLOOD COUNT 9.8 10^3/uL (4.0-10.0)
[2024-04-28 15:36] LABS: HEMOGLOBIN A1c 5.4 % (4.0-6.0)
[2024-04-28 15:47] LABS: ALBUMIN 3.9 G/DL (3.2-5.2); ALKALINE PHOSPHATASE 92 U/L (35-104); ALT/SGPT 44 U/L (7.0-40); AST/SGOT 20 U/L (<34); BILIRUBIN,TOTAL 0.5 MG/DL (0.3-1.2); BLOOD UREA NITROGEN 15 MG/DL (9-23); CALCIUM LEVEL 9.7 MG/DL (8.5-10.1); CARBON DIOXIDE LEVEL 30 MMOL/L (20-31); CHLORIDE LEVEL 108 MMOL/L (98-107); CHOLESTEROL LEVEL 178 MG/DL (<200); CHOLESTEROL RISK RATIO 2.13 (<5); GLOMERULAR FILTRATION RATE > 60.0 (>51); GLUCOSE, FASTING 73 MG/DL (60-100); HDL CHOLESTEROL 83.2 MG/DL (>40); LDL CHOLESTEROL 84.2 MG/DL (<100); NON-HDL-C 94.8 MG/DL; POTASSIUM SERUM 4.5 MMOL/L (3.5-5.1); SODIUM LEVEL 143 MMOL/L (136-145); TOTAL PROTEIN 6.9 G/DL (5.7-8.2); TRIGLYCERIDES LEVEL 53 MG/DL (<150)
== END ==
LOC: M PLALAB 13:56
PROVIDERS: ATTEND Physician Assistant
DX: I10 Essential (primary) hypertension (principal)

== ENCOUNTER → 2024-08-27 | Outpatient (REF) | payer OTHER ==
[~2024-08-27] MED LIST changes: +BUSP1TAB; +FLUTISP; +GABA-1171; +GABA-1172; +MELO15TA28; +PANT40TA29; -ROSU5TAB40 PO; +ROSU5TAB49 PO; +TIZA2TA
== END ==
LOC: M SFHCWAGY 14:24
PROVIDERS: ATTEND Specialist
DX: N87.1 Moderate cervical dysplasia (principal)

== ENCOUNTER 2024-09-10 09:27 | Emergency (ER) | payer OTHER ==
[~2024-09-10] VITALS: Ht 154.9 cm; Wt 60.3 kg
[~2024-09-10 09:27] MED LIST changes: -BUSP1TAB; -FLUTISP; -GABA-1171; -GABA-1172; -MELO15TA28; -PANT40TA29; -TIZA2TA
[2024-09-10] MEDS ORDERED: PANT40TA29 (09:36)
[2024-09-10] MEDS ORDERED: GABA-1171 (09:36)
[2024-09-10] MEDS ORDERED: MELO15TA28 (09:36)
[2024-09-10] MEDS ORDERED: BUSP1TAB (09:36)
[2024-09-10] MEDS ORDERED: GABA-1172 (09:36)
[2024-09-10] MEDS ORDERED: TIZA2TA (09:36)
[2024-09-10] MEDS ORDERED: FLUTISP (09:36)
[2024-09-10 10:25] LABS: AMPHETAMINES LEVEL URINE NEGATIVE (NEGATIVE); BARBITURATES URINE NEGATIVE (NEGATIVE); BENZODIAZEPINES URINE NEGATIVE (NEGATIVE); CANNABINOIDS URINE NEGATIVE (NEGATIVE); COCAINE METABOLITE URINE NEGATIVE (NEGATIVE); METHADONE URINE NEGATIVE (NEGATIVE); OPIATES URINE NEGATIVE (NEGATIVE); PHENCYCLIDINE URINE NEGATIVE (NEGATIVE)
[2024-09-10] MEDS: ACETAMINOPHEN 500 MG TAB PO ONE (11:06)
[2024-09-10 12:03] VITALS: BP 105/61; TEMP 97.7; O2SAT 97
== END 2024-09-10 13:03 | disposition home or self-care (01) ==
LOC: M ED 09:27
DX: Z02.83 Encounter for blood-alcohol and blood-drug test (principal); K21.9 Gastro-esophageal reflux disease without esophagitis; F10.10 Alcohol abuse, uncomplicated; Z86.79 Personal history of other diseases of the circulatory system; Z79.899 Other long term (current) drug therapy

== ENCOUNTER 2024-10-12 18:06 | Emergency (ER) | payer OTHER ==
[~2024-10-12] VITALS: Ht 154.9 cm; Wt 61.4 kg
[~2024-10-12 18:06] MED LIST changes: +BUSP1TAB; +FLUTISP; +GABA-1171; +GABA-1172; +MELO15TA28; +PANT40TA29; +TIZA2TA
[2024-10-12 21:36] LABS: HEMATOCRIT 41.6 % (36.0-47.0); HEMOGLOBIN 13.9 g/dl (12.0-15.5); MEAN CORPUSCULAR HEMOGLOBIN 31.1 pg (27.0-33.0); MEAN CORPUSCULAR HGB CONC 33.4 g/dl (32.0-36.5); MEAN CORPUSCULAR VOLUME 93.1 fl (80.0-96.0); PLATELET COUNT, AUTOMATED 393 10^3/uL (150-450); RED BLOOD COUNT 4.47 10^6/uL (4.00-5.40); WHITE BLOOD COUNT 10.9 10^3/uL (4.0-10.0)
[2024-10-12 21:51] LABS: ALBUMIN 4.1 G/DL (3.2-5.2); ALKALINE PHOSPHATASE 69 U/L (35-104); ALT/SGPT 23 U/L (7.0-40); AST/SGOT 13 U/L (<34); BILIRUBIN,TOTAL 0.4 MG/DL (0.3-1.2); BLOOD UREA NITROGEN 10 MG/DL (9-23); CALCIUM LEVEL 10.7 MG/DL (8.5-10.1); CARBON DIOXIDE LEVEL 27 MMOL/L (20-31); CHLORIDE LEVEL 110 MMOL/L (98-107); CREATININE FOR GFR 0.72 MG/DL (0.55-1.30); GLOMERULAR FILTRATION RATE > 90.0 (>51); GLUCOSE, FASTING 87 MG/DL (60-100); POTASSIUM SERUM 4.4 MMOL/L (3.5-5.1); SODIUM LEVEL 145 MMOL/L (136-145); TOTAL PROTEIN 7.3 G/DL (5.7-8.2)
[2024-10-12 22:09] LABS: ATYPICAL LYMPH 4 % (0-5); BASOPHILS 1 % (0-1); EOSINOPHILS 3 % (0-3); LYMPHOCYTES 43 % (16-44); MONOCYTES 4 % (0-5); NEUTROPHILS 45 % (28-66)
[2024-10-12 22:10] LABS: PLATELET ESTIMATE NORMAL (NORMAL)
[2024-10-13 03:59] VITALS: TEMP 96.5
[2024-10-13] MEDS: NS (Normal Saline) 0.9% 1,000 ML IV ONE (05:10)
[2024-10-13] MEDS: KETOROLAC 30 MG/ML 1ML VIAL IV ONE (05:10)
[2024-10-13] MEDS: diphenhydrAMINE 50MG/ML VIAL IV ONE (05:11)
[2024-10-13] MEDS: METOCLOPRAMIDE INJ 10MG/2ML VIAL IV ONE (05:11)
[2024-10-13 06:00] VITALS: BP 116/65
[2024-10-13 06:36] VITALS: O2SAT 95
== END 2024-10-13 07:14 | disposition home or self-care (01) ==
LOC: M ED 18:06
DX: G43.909 Migraine, unspecified, not intractable, without status migrainosus (principal); Z79.899 Other long term (current) drug therapy
CPT/HCPCS: 80053; 85025; 93005; 96361; 96374; 96375; 99284; J1200; J1885; J2765

== ENCOUNTER → 2025-06-22 | Outpatient (REF) | payer OTHER | LOC: M LAB REF 11:46 | PROVIDERS: ATTEND Physician Assistant | DX: R30.0 Dysuria (principal) ==